=== PATIENT | female | born 1950 | race Caucasian/White ===

== ENCOUNTER 2017-03-04 18:41 | Observation (INO) ==
[2017-03-04] MEDS ORDERED: NS 1,000 ML IV ONE (19:26)
[2017-03-04 19:45] LABS: ALLEN TEST YES; BE 0.3 mmoll (-3.0-3.0); BLOOD TYPE ARTERIAL; DRAW SITE R BRACHIAL; METHB 0.8 % (0.0-1.5); MODALITY ROOM AIR; PCO2(98.6) 38 mmHg (35-45); PO2(98.6) 68 mmHg (60-100); SAMPLE BLOOD; SAO2 96.9 % (95.0-100.0); THB 12.9 g/dL (11.5-17.4); pH(98.6) 7.42 (7.35-7.45)
[2017-03-04 19:51] LABS: MANUAL DIFF NEEDED? NO
[2017-03-04 19:56] LABS: BASO% 0.4 % (0.0-0.8); HEMATOCRIT 39.6 % (37.0-47.0); HEMOGLOBIN 13.2 g/dL (12.0-16.0); LYMPH# 0.69 X1000 (1.2-3.4); LYMPH% 14.2 % (20.5-51.1); MCH 30.6 PG (27-31); MCHC 33.3 g/dL (33-37); MCV 91.9 FL (81-99); MONO% 6.2 % (1.7-9.3); MPV 10.2 FL (7.4-10.4); NEUT% 79.2 % (42.2-75.2); PLT 217 X1000 (130-400); RBC 4.31 XMIL (4.2-5.4)
[2017-03-04 20:06] LABS: INR 1.11; PROTIME 11.7 Seconds (9.2-11.7); PTT 29.9 Seconds (22.0-36.0)
[2017-03-04 20:37] LABS: AGAP 13; ALBUMIN 3.6 g/dL (3.5-5.0); ALKALINE PHOSPHATASE 49 U/L (32-104); BUN 24 mg/dL (8-22); CALCIUM 9.2 mg/dL (8.8-10.2); CHLORIDE 107 mmol/L (98-107); CK PROFILE 98 U/L (24-173); COSMO 291; GOT 29 U/L (10-30); GPT 9 U/L (10-36); POTASSIUM 4.2 mmol/L (3.5-5.1); SODIUM 144 mmol/L (136-145); TCO2 24 mmol/L (25-35); TOTAL BILIRUBIN 0.18 mg/dL (0.20-1.00); TOTAL PROTEIN 7.2 g/dL (6.3-8.3)
--- NOTE | 2017-03-04 20:50 | Diag Imaging Result Doc PS360 ---
EXAM: HEAD W/O CONTRAST TECHNIQUE: INDICATION: ams COMPARISON: None. FINDINGS: There is focal right frontal lobe encephalomalacia. There is no definite acute infarct given the limited sensitivity of CT versus MRI. There is no discrete intracranial mass, mass effect, or intracranial hemorrhage. Surrounding soft tissues and bony structures are essentially unremarkable. IMPRESSION: Focal right frontal encephalomalacia. No definite acute intracranial pathology. Electronically signed by Timi Barnett 03/04/2017 8:47 PM
[2017-03-04] MEDS ORDERED: BLISTEX MEDICATED BERRY LIP BALM TOP PRN (20:52)
--- NOTE | 2017-03-04 20:52 | Diag Imaging Result Doc PS360 ---
EXAM: CHEST-PORTABLE INDICATION: AMS TECHNIQUE: One view COMPARISON: 10/21/2016 FINDINGS: There is suggestion of minimal right basilar fibrotic change versus atelectasis. The lungs are grossly clear, otherwise. There is no discrete pleural fluid collection or pneumothorax. The cardiomediastinal silhouette and central vasculature are grossly unremarkable. IMPRESSION: Minimal right basilar fibrosis versus atelectasis. No definite acute pathology, otherwise. Electronically signed by Timi Barnett 03/04/2017 8:49 PM
[2017-03-04 21:46] LABS: URINE CULTURE NEEDED? NO; URINE MICRO REVIEW NEEDED? NO; URINE SOURCE CLEAN CATCH
[2017-03-04 21:52] LABS: BILIRUBIN URINE NEGATIVE (NEGATIVE); BLOOD URINE NEGATIVE (NEGATIVE); COLOR YELLOW; GLUCOSE URINE NEGATIVE (NEGATIVE); LEUKOCYTES URINE NEGATIVE (NEGATIVE); NITRITE URINE NEGATIVE (NEGATIVE); PH URINE 5.5; PROTEIN URINE TRACE mg/dL (NEGATIVE); SP GRAVITY URINE 1.025; TURBIDITY URINE CLEAR (CLEAR); UROBILINOGEN URINE NORMAL (NORMAL)
[2017-03-04 21:53] LABS: UR EPITHELIAL CELLS <10 /HPF (<10); URINE BACTERIA NEGATIVE /HPF; URINE RBC <10 /HPF (<10); URINE WBC <10 /HPF (<10)
[2017-03-04 22:04] LABS: UR AMPHETAMINES QUAL NONE DETECTED (NONE DETECT); UR BARBITUATES QUAL NONE DETECTED (NONE DETECT); UR BENZODIAZEPIN QUAL NONE DETECTED (NONE DETECT); UR CANNABINOIDS QUAL NONE DETECTED (NONE DETECT); UR COCAINE QUAL NONE DETECTED (NONE DETECT); UR METHADONE QUAL NONE DETECTED (NONE DETECT); UR OPIATES QUAL NONE DETECTED (NONE DETECT); UR OXYCODONE QUAL NONE DETECTED (NONE DETECT); UR PCP QUAL NONE DETECTED (NONE DETECT)
--- NOTE | 2017-03-04 22:09 | PROVIDER DOCUMENTATION ---
This chart was entered by Pankaj Hernandez Scribe, acting as scribe for Marcio Leary MD. HPI-Psychological Disorder - General Chief Complaint: Heat Related Stated Complaint: AMS Time Seen by Provider: 03/04/17 19:18 Source: patient, family (sister) Unable to obtain history due to:: altered Allergies/Adverse Reactions: Patient Allergies Allergy/AdvReac Type Severity Reaction Status Date / Time Penicillins Allergy Severe ANAPHYLAXIS Verified 03/04/17 19:30 promethazine HCl * Allergy Severe ANAPHYLAXIS Verified 03/04/17 19:30 [From Phenergan] hydrocodone bitartrate * AdvReac Mild ITCHING Verified 03/04/17 19:30 [From Lorcet (hydrocodone)] propoxyphene napsylate * AdvReac Mild ITCHING Verified 03/04/17 19:30 [From Darvocet-N 100] Home Medications: Home Medication List Medication Instructions Recorded Confirmed Last Taken Type Fluticasone 50 Mcg Nasal [place] 2 spray BILLIE DAILY #1 bottle 01/18/14 Unknown Rx [Flonase] Levothyroxine [Synthroid] 75 microgm PO DAILY 01/18/14 01/18/14 01/18/14 06:00 History - History of Present Illness-Psych Nature of Presenting Problem: Pt is a 66 yowf who presents to ER via EMS after sister could not get a hold of pt earlier. Sister reports that the last contact she had with pt was last night at 1900 and states that pt seemed okay, but possibly slightly altered. 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 When sister was not able to contact pt today, she to her apartment and had to be let in. Pt was found inside her apartment, altered. Sister states that pt has had slurred speech today, but states that she was not slurred on exam. Sister reports pt had a similar episode 8 moths ago, but never found out the cause of pt's condition. Onset/Duration: reports: unsure, this morning Timing: reports: still present Severity: reports: moderate Situational problems related to:: reports: N/A Psychiatric Complaints: reports: altered mental status Previous psych related hospitalizations?: No Patient arrived by:: EMS called by spouse/family Similar Symptoms Previously?: Yes (8 months ago) Recently seen or treated by another doctor?: No Review of Systems - Adult - REVIEW OF SYSTEMS - ADULT ROS:: ROS per family Constitutional: denies: chills, fever, fatique, night sweats, weight gain, weight loss Eyes: reports: no symptoms reported Ears, Nose, Mouth & Throat: reports: no symptoms reported Cardiovascular: reports: no symptoms reported Respiratory: reports: no symptoms reported Gastrointestinal: reports: no symptoms reported Genitourinary: reports: no symptoms reported Musculoskeletal: reports: no symptoms reported Integumentary: reports: no symptoms reported Neurological: reports: slurred speech. denies: ataxia, dizziness/vertigo, headache/migraines, loss of balance, numbness, paresthesia, seizure, syncope, tremors Psychiatric: reports: other (AMS). denies: anxiety, anti-depressant use, alcohol/drug dependence, depression, emotional problems, insomnia, panic attacks , suicidal thoughts Endocrine: reports: no symptoms reported Hematologic/Lymphatic: reports: no symptoms reported Allergic/Immunologic: reports: no symptoms reported All Other Systems: Reviewed and Negative Past History - Adult - PAST MEDICAL HISTORY-ADULT Review of Records: reports: Nursing Assessment Review, Medications Reviewed Respiratory: reports: COPD Endocrine/Immune: reports: thyroid disorder - PRIOR SURGERIES/PROCEDURES Surgical/Procedure History: reports: hysterectomy - IMMUNIZATION STATUS Childhood Immunizations: See Nurse Assessment Flu Vaccine: See Nurse Assessment - FAMILY HISTORY Family History: reviewed, not pertinent - SOCIAL HISTORY Smoking: cigarettes, less than 1 pack/day Physical Exam-Psych Focus - Physical Exam-Psych Initial Vital Signs Reviewed: Yes Appearance: alert, impaired insight, lethargic, slow to respond, other (thin) Neurological: alert, calm, depressed affect, disoriented x 3 Behavior/Eye Contact/Speech: decreased rate of speech, uncooperative (mildly). negative: good eye contact Thoughts/Hallucinations: negative: normal thought pattern, grandiose, phobic Neck: non-tender, full range of motion, supple, normal inspection. negative: C- spine tenderness, limited range of motion Respiratory: chest non-tender, lungs clear, normal breath sounds, no pleuratic chest pain, no respiratory distress, no accessory muscle use. negative: respiratory distress, decreased breath sounds, accessory muscle use, wheezing Cardiovascular: normal peripheral pulses, regular rate, rhythm. negative: bradycardia, tachycardia, irregularly irregular Abdominal Exam: normal bowel sounds, non tender, soft, no organomegaly, no pulsatile mass. negative: guarding, rebound, tenderness Back Exam: no CVA tenderness, no vertebral tenderness. negative: CVA tenderness , vertebral tenderness Extremity: normal range of motion, non-tender, normal gait, normal inspection, no pedal edema, no calf tenderness, normal capillary refill, pelvis stable, erythema (bilateral knee, L>R). negative: deformity, pedal edema, swelling, tenderness Integumentary: abrasion(s) (abrasions to bilateral knees, L>R), erythema. negative: diaphoresis, laceration(s), swelling, tenderness Progress - PLAN OF CARE/RESULTS Progress/Plan/Lab Results: Vital Signs - 8 hr 03/04/17 19:14 03/04/17 20:57 Temperature 98.3 F Pulse Rate 67 66 Respiratory Rate 18 23 Blood Pressure 111/90 149/82 O2 Sat by Pulse Oximetry 100 97 Laboratory Results - last 24 hr 03/04/17 03/04/17 03/04/17 19:26 19:30 19:30 WBC RBC Hgb Hct MCV MCH MCHC RDW Std Deviation Plt Count MPV Immature Gran % (Auto) Neut % (Auto) Lymph % (Auto) [place] % (Auto) Eos % (Auto) Baso % (Auto) Immature Gran # (Auto) Neut # (Auto) Lymph # (Auto) [place] # (Auto) Eos # (Auto) Baso # (Auto) PT INR PTT ([place] FS) Specimen Type ARTERIAL Sample Site R BRACHIAL pH 7.42 pCO2 38 pO2 68 HCO3 25.1 Base Excess 0.3 Oxyhemoglobin 93.7 L ABG O2 Sat (Calculated) 17.0 ABG O2 Saturation 96.9 ABG Carboxyhemoglobin 2.50 ABG Methemoglobin 0.8 Hardy Test YES A-a O2 Difference 34.0 Total Hemoglobin 12.9 Lactate 0.50 Blood Gas Modality ROOM AIR FiO2 % 21.0 Sodium Potassium Chloride Carbon Dioxide Anion Gap BUN Creatinine Estimated GFR/1.73 m2 BUN/Creatinine Ratio Glucose Calculated Osmolality Calcium Total Bilirubin AST ALT Alkaline Phosphatase Creatine Kinase Troponin T Total Protein Albumin Globulin Albumin/Globulin Ratio Plasma Lactate Vitamin B12 TSH 0.03 L Free T4 Urine Source Urine Color Urine Turbidity Urine pH Ur Specific [place] Urine Protein Ur Glucose (Stick) Ur Ketones (Stick) Urine Blood Urine Nitrite Urine Bilirubin Urobilinogen Dipstick Urine Leukocytes Urine WBC (Auto) Urine RBC (Auto) U Epithel Cells (Auto) Urine Bacteria (Auto) Urine Opiates Screen Ur Oxycodone Screen Ur Methadone, Qual Ur Barbiturates Screen Ur Phencyclidine Scrn Ur Amphetamines Screen U Benzodiazepines Scrn Urine Cocaine Screen U Cannabinoids Screen Plasma/Serum Ethyl Alc 03/04/17 03/04/17 03/04/17 19:30 19:30 19:30 WBC 4.86 RBC 4.31 Hgb 13.2 Hct 39.6 MCV 91.9 MCH 30.6 MCHC 33.3 RDW Std Deviation 16.5 H Plt Count 217 MPV 10.2 Immature Gran % (Auto) 0.0 Neut % (Auto) 79.2 H Lymph % (Auto) 14.2 L [place] % (Auto) 6.2 Eos % (Auto) 0.0 Baso % (Auto) 0.4 Immature Gran # (Auto) 0.00 Neut # (Auto) 3.85 Lymph # (Auto) 0.69 L [place] # (Auto) 0.30 Eos # (Auto) 0.00 Baso # (Auto) 0.02 PT INR PTT (Actin FS) Specimen Type Sample Site pH pCO2 pO2 HCO3 Base Excess Oxyhemoglobin ABG O2 Sat (Calculated) ABG O2 Saturation ABG Carboxyhemoglobin ABG Methemoglobin Hardy Test A-a O2 Difference Total Hemoglobin Lactate Blood Gas Modality FiO2 % Sodium 144 Potassium 4.2 Chloride 107 Carbon Dioxide 24 L Anion Gap 13 BUN 24 H Creatinine 0.6 Estimated GFR/1.73 m2 > 60 BUN/Creatinine Ratio 40 Glucose 103 Calculated Osmolality 291 Calcium 9.2 Total Bilirubin 0.18 L AST 29 ALT 9 L Alkaline Phosphatase 49 Creatine Kinase 98 Troponin T Total Protein 7.2 Albumin 3.6 Globulin 3.6 Albumin/Globulin Ratio 1.0 Plasma Lactate 0.7 Vitamin B12 TSH Free T4 Urine Source Urine Color Urine Turbidity Urine pH Ur Specific [place] Urine Protein Ur Glucose (Stick) Ur Ketones (Stick) Urine Blood Urine Nitrite Urine Bilirubin Urobilinogen Dipstick Urine Leukocytes Urine WBC (Auto) Urine RBC (Auto) U Epithel Cells (Auto) Urine Bacteria (Auto) Urine Opiates Screen Ur Oxycodone Screen Ur Methadone, Qual Ur Barbiturates Screen Ur Phencyclidine Scrn Ur Amphetamines Screen U Benzodiazepines Scrn Urine Cocaine Screen U Cannabinoids Screen Plasma/Serum Ethyl Alc 03/04/17 03/04/17 03/04/17 19:30 19:30 19:30 WBC RBC Hgb Hct MCV MCH MCHC RDW Std Deviation Plt Count MPV Immature Gran % (Auto) Neut % (Auto) Lymph % (Auto) [place] % (Auto) Eos % (Auto) Baso % (Auto) Immature Gran # (Auto) Neut # (Auto) Lymph # (Auto) [place] # (Auto) Eos # (Auto) Baso # (Auto) PT 11.7 INR 1.11 PTT (Actin FS) 29.9 Specimen Type Sample Site pH pCO2 pO2 HCO3 Base Excess Oxyhemoglobin ABG O2 Sat (Calculated) ABG O2 Saturation ABG Carboxyhemoglobin ABG Methemoglobin Hardy Test A-a O2 Difference Total Hemoglobin Lactate Blood Gas Modality FiO2 % Sodium Potassium Chloride Carbon Dioxide Anion Gap BUN Creatinine Estimated GFR/1.73 m2 BUN/Creatinine Ratio Glucose Calculated Osmolality Calcium Total Bilirubin AST ALT Alkaline Phosphatase Creatine Kinase Troponin T < 0.010 Total Protein Albumin Globulin Albumin/Globulin Ratio Plasma Lactate Vitamin B12 778 TSH Free T4 1.00 Urine Source Urine Color Urine Turbidity Urine pH Ur Specific [place] Urine Protein Ur Glucose (Stick) Ur Ketones (Stick) Urine Blood Urine Nitrite Urine Bilirubin Urobilinogen Dipstick Urine Leukocytes Urine WBC (Auto) Urine RBC (Auto) U Epithel Cells (Auto) Urine Bacteria (Auto) Urine Opiates Screen Ur Oxycodone Screen Ur Methadone, Qual Ur Barbiturates Screen Ur Phencyclidine Scrn Ur Amphetamines Screen U Benzodiazepines Scrn Urine Cocaine Screen U Cannabinoids Screen Plasma/Serum Ethyl Alc 03/04/17 03/04/17 21:30 21:30 WBC RBC Hgb Hct MCV MCH MCHC RDW Std Deviation Plt Count MPV Immature Gran % (Auto) Neut % (Auto) Lymph % (Auto) [place] % (Auto) Eos % (Auto) Baso % (Auto) Immature Gran # (Auto) Neut # (Auto) Lymph # (Auto) [place] # (Auto) Eos # (Auto) Baso # (Auto) PT INR PTT ([place] FS) Specimen Type Sample Site pH pCO2 pO2 HCO3 Base Excess Oxyhemoglobin ABG O2 Sat (Calculated) ABG O2 Saturation ABG Carboxyhemoglobin ABG Methemoglobin Hardy Test A-a O2 Difference Total Hemoglobin Lactate Blood Gas Modality FiO2 % Sodium Potassium Chloride Carbon Dioxide Anion Gap BUN Creatinine Estimated GFR/1.73 m2 BUN/Creatinine Ratio Glucose Calculated Osmolality Calcium Total Bilirubin AST ALT Alkaline Phosphatase Creatine Kinase Troponin T Total Protein Albumin Globulin Albumin/Globulin Ratio Plasma Lactate Vitamin B12 TSH Free T4 Urine Source CLEAN CATCH Urine Color YELLOW Urine Turbidity CLEAR Urine pH 5.5 Ur Specific [place] 1.025 Urine Protein TRACE A Ur Glucose (Stick) NEGATIVE Ur Ketones (Stick) 60 A Urine Blood NEGATIVE Urine Nitrite NEGATIVE Urine Bilirubin NEGATIVE Urobilinogen Dipstick NORMAL Urine Leukocytes NEGATIVE Urine WBC (Auto) <10 Urine RBC (Auto) <10 U Epithel Cells (Auto) <10 Urine Bacteria (Auto) NEGATIVE Urine Opiates Screen NONE DETECTED Ur Oxycodone Screen NONE DETECTED Ur Methadone, Qual NONE DETECTED Ur Barbiturates Screen NONE DETECTED Ur Phencyclidine Scrn NONE DETECTED Ur Amphetamines Screen NONE DETECTED U Benzodiazepines Scrn NONE DETECTED Urine Cocaine Screen NONE DETECTED U Cannabinoids Screen NONE DETECTED Plasma/Serum Ethyl Alc Orders Category Date Time Status Cardiac Monitoring DIRECTED Care 03/04/17 19:26 Active Finger Stick Blood Sugar (ED) DIRECTED Care 03/04/17 19:26 Active Saline Loc NOW Care 03/04/17 19:26 Active CHEST-PORTABLE [RAD] Stat Exams 03/04/17 19:26 Completed HEAD W/O CONTRAST [CT] Stat Exams 03/04/17 19:28 Completed ABG [RESP] Routine Lab 03/04/17 19:26 Completed ALCOHOL BLOOD Stat Lab 03/04/17 19:30 Completed CBC WITH ELECTRONIC DIFF [HEME] Stat Lab 03/04/17 19:30 Completed CK PROFILE [SP CHEM] Stat Lab 03/04/17 19:30 Completed COMPREHENSIVE METABOLIC PANEL [CHEM] Stat Lab 03/04/17 19:30 Completed FOLATE Stat Lab 03/04/17 19:30 Received FREE T4 Stat Lab 03/04/17 19:30 Completed LACTATE, PLASMA [CHEM] Stat Lab 03/04/17 19:30 Completed PROTIME WITH INR [COAG] Stat Lab 03/04/17 19:30 Completed PTT [COAG] Stat Lab 03/04/17 19:30 Completed TROPONIN T Stat Lab 03/04/17 19:30 Completed TSH Stat Lab 03/04/17 19:30 Completed URINALYSIS W/POSS RFLX CULT-1 [URINALYSIS] Stat Lab 03/04/17 21:30 Completed URINE DRUG SCREEN Stat Lab 03/04/17 21:30 Completed VITAMIN B12 Stat Lab 03/04/17 19:30 Completed 0.9% Sodium Chloride Inj [Ns] 1,000 ml Med 03/04/17 19:26 Discontinued IV 999 mls/hr Dimethicone/Oxybenzone [place] [Blistex Medicated Diehl Med 03/04/17 20:52 Active Lip [place]] 1 gm TOP PRN PRN Pulse Oximetry Stat Oth 03/04/17 19:26 Active EKG [EKG] Stat Ther 03/04/17 19:26 Ordered Result Diagrams: 03/04/17 19:30 03/04/17 19:30 - REASSESSMENT Reassessment #1 Time Reassessed: 20:44 Status: other (Discussed finding on head CT (old right frontal lobe infarct) with family. Family was unaware of previous stroke, and state pt had similar episode 8 months ago that they were never made aware of until today. Discussed decision to admit pt and family verbally acknowledged and agreed.) - EKG 1 Time of EKG reading by physician:: 20:15 EKG Read and Signed by:: Marcio Leary EKG Interpretation (*Must complete 3 of following elements*): Abnormal ( Possible left atrial enlargement) Rate: 65 Rhythm: NSR with sinus arrhythmia - XRAY 1 XRAY: Bilateral XRAY Study: Chest Impression: See EMR Report XRAY Interpretation: COPD, borderline cardiomegaly, otherwise normal - Dr. Etelvina villanueva - CT/MRI 1 CT Study: Head Impression: See EMR Report (Old right frontal infarct - Dr. Leary ; Focal right frontal encephalomalacia. No definite acute intracranial pathology - Dr. Barnett (Radiologist)) CT Results: See report Departure - Departure Date of Disposition Decision: 03/04/17 Time of Disposition Decision: 22:05 DIAGNOSIS: Altered mental status Qualifiers: Altered mental status type: unspecified Qualified Code(s): R41.82 - Altered mental status, unspecified Disposition: ADMITTED INPATIENT 09 Certified Medical Emergency: Emergent Condition: Fair Referrals and Follow-Ups: None,PCP [Primary Care Provider] - - Critical Care Note This patient required my direct & personal management of CC.: No This chart was documented by the indicated scribe, (Pankaj Hernandez, Scrjevon) and accurately reflects the services I performed and decisions made by me, Marcio Vincent MD, as attested by the provider's signature.
[2017-03-05] MEDS ORDERED: ZOFRAN IV PRN
[2017-03-05] MEDS ORDERED: TYLENOL PO PRN
[2017-03-05] MEDS ORDERED: NS 1,000 ML IV ONE
[2017-03-05] MEDS ORDERED: ASPIRIN PR ONE (03:00)
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
[2017-03-05 07:04] LABS: MANUAL DIFF NEEDED? NO
[2017-03-05 07:07] LABS: BASO% 0.4 % (0.0-0.8); EOS# 0.02 X1000 (0.0-0.7); EOS% 0.4 % (0.0-10.0); HEMATOCRIT 36.6 % (37.0-47.0); HEMOGLOBIN 12.2 g/dL (12.0-16.0); LYMPH# 0.75 X1000 (1.2-3.4); LYMPH% 16.2 % (20.5-51.1); MCH 30.7 PG (27-31); MCHC 33.3 g/dL (33-37); MONO# 0.43 X1000 (0.11-0.59); MONO% 9.3 % (1.7-9.3); MPV 10.1 FL (7.4-10.4); NEUT% 73.7 % (42.2-75.2); PLT 197 X1000 (130-400); RBC 3.98 XMIL (4.2-5.4)
[2017-03-05 07:32] LABS: AGAP 13; BUN 26 mg/dL (8-22); CALCIUM 8.5 mg/dL (8.8-10.2); CHLORIDE 111 mmol/L (98-107); COSMO 295; POTASSIUM 4.1 mmol/L (3.5-5.1); SODIUM 146 mmol/L (136-145); TCO2 22 mmol/L (25-35)
[2017-03-05] MEDS ORDERED: HALDOL IM ONE (09:43)
--- NOTE | 2017-03-05 10:46 | Diag Imaging Result Doc PS360 ---
EXAM: ANGIOGRAM/HEAD AND NECK INDICATION: possible cva TECHNIQUE: In addition to standard CTA thin section imaging through the head and neck, 3-D MIP reformations were obtained. COMPARISON: Conventional CT head without contrast dated 03/04/2017 FINDINGS: HEAD: There is an incidental origin of the left ORGAN FIXER. Otherwise, there is no evidence of flow-limiting stenosis, vascular malformation, or aneurysm involving the arteries comprising the [place] including the anterior, middle, and posterior circulations. There is trace atherosclerotic calcification involving the carotid siphons but with no significant stenosis. The basilar artery is patent. NECK: There are atherosclerotic calcifications at the carotid bifurcations and bulbs bilaterally. There is moderate luminal narrowing of about 40-50% involving the right ICA just distal to the bifurcation. There is milder luminal narrowing involving the proximal left ICA just distal to the bifurcation of about 20%. There is only trace atherosclerotic calcification involving the left CCA and the distal left ICA with no significant flow-limiting stenosis. There is no flow-limiting stenosis, vascular malformation, or aneurysm involving the vertebral arteries. IMPRESSION: 1.No evidence of flow-limiting stenosis intracranially involving the arteries comprising the [place]. 2.Atherosclerotic calcification causing moderate stenosis on the right and mild stenosis on the left at the ICAs just distal to the bifurcations. Electronically signed by Timi Barnett 03/05/2017 10:43 AM
[2017-03-05] MEDS ORDERED: HALDOL IM PRN (11:37)
--- NOTE | 2017-03-05 14:07 | PROGRESS NOTE ---
DATE: 03/05/2017 SUBJECTIVE: This patient is still confused, as per the family member at the bedside, her daughter, apparently this patient is a little bit better but she is still confused. She is following commands. She is answering some of my questions. She is oriented x1, just to place. We are asking for an MRI and angiogram of the head and neck, hopefully we will get that tomorrow and also pending neurology evaluation. OBJECTIVE: Vital Signs: Temperature 99.4 degrees, pulse 58, respiratory rate 20, blood pressure 124/67, oxygen saturation 98 on room air. HEENT: Head normocephalic. No trauma. PERRLA. Neck: Supple. No JVD. No masses. Central trachea. Chest: Clear to auscultation. No wheezing. No rales. Abdomen: Soft, nontender, nondistended. No hepatosplenomegaly. Extremities: No edema. No clubbing. No cyanosis. Neurological: The patient is alert, she is oriented x1. She is confused. She was able to recognize her daughter. Every time due we asked a question she started laughing but she does not answer the question. Also she is a little bit agitated. LABORATORY: WBC 4.6, hemoglobin 12.2, hematocrit 36.6, platelets 197,000. Sodium 146, potassium 4.1, chloride 111, bicarbonate 22, BUN 26, creatinine 0.5, glucose 86, calcium 8.5. ASSESSMENT AND PLAN: 1. Acute encephalopathy. As per the daughter 2-3 days ago this patient was completely fine and then somebody called her and she was not picking up the phone so they visited her at home and they found this patient on the floor and confused. They brought this patient over, no signs of drugs drug abuse or alcohol. I do not have any source of infection. Pending brain studies and neurology evaluation. 2. Hypothyroidism. Continue with the same management. 3. Deep vein thrombosis prophylaxis provided with SCDs. 4. Nicotine dependence aware. We will advise the patient against tobacco abuse once this patient is better. 5. Mild hypernatremia. I told the daughter that this patient needs to drink more water. We will check a new BMP tomorrow. cc: José Luis Lee MD
--- NOTE | 2017-03-06 06:35 | EKG Report ---
Test Performed on : 03/04/2017 8:08:47 PM Test Reason : AMS Blood Pressure : / mmHG Vent. Rate : 065 BPM Atrial Rate : 065 BPM P-R Int : 148 ms QRS Dur : 082 ms QT Int : 398 ms P-R-T Axes : 069 015 059 degrees QTc Int : 413 ms Normal sinus rhythm. with sinus arrhythmia. Possible Left atrial enlargement Borderline ECG No previous ECGs available Unconfirmed Result
[2017-03-06 07:30] LABS: BASO% 0.5 % (0.0-0.8); EOS# 0.07 X1000 (0.0-0.7); EOS% 1.6 % (0.0-10.0); HEMATOCRIT 34.7 % (37.0-47.0); HEMOGLOBIN 11.4 g/dL (12.0-16.0); LYMPH# 0.98 X1000 (1.2-3.4); LYMPH% 22.6 % (20.5-51.1); MANUAL DIFF NEEDED? NO; MCH 30.6 PG (27-31); MCHC 32.9 g/dL (33-37); MONO# 0.43 X1000 (0.11-0.59); MONO% 9.9 % (1.7-9.3); NEUT% 65.4 % (42.2-75.2); PLT 186 X1000 (130-400); RBC 3.73 XMIL (4.2-5.4)
[2017-03-06 07:50] LABS: AGAP 13; BUN 28 mg/dL (8-22); CALCIUM 8.8 mg/dL (8.8-10.2); CHLORIDE 104 mmol/L (98-107); COSMO 285; SODIUM 141 mmol/L (136-145); TCO2 24 mmol/L (25-35)
[2017-03-06] MEDS ORDERED: ASPIRIN PR SCH (09:00)
--- NOTE | 2017-03-06 09:18 | Diag Imaging Result Doc PS360 ---
MRI BRAIN W W/O CONTRAST - 03/06/2017 INDICATION: ams COMPARISON: 03/04/2017 FINDINGS: Stable area of focal encephalomalacia at the superior anterior right frontal lobe consistent with an old infarction. No restricted diffusion. No intracranial mass or hemorrhage. There is some stable minimal periventricular white matter hyperintensity compatible with chronic microvascular disease. Midline structures are unremarkable. There is no abnormal contrast enhancement. IMPRESSION: No acute disease or change from prior. Stable encephalomalacia at the right frontal lobe and mild periventricular white matter chronic microvascular disease. Electronically signed by Homer Helton 03/06/2017 9:16 AM
[2017-03-06] MEDS: ASPIRIN PO SCH (12:21)
--- NOTE | 2017-03-06 12:24 | EKG Report ---
Test Performed on : 03/06/2017 11:36:59 AM Test Reason : Bradycardia Blood Pressure : / mmHG Vent. Rate : 041 BPM Atrial Rate : 041 BPM P-R Int : 150 ms QRS Dur : 084 ms QT Int : 456 ms P-R-T Axes : 055 012 044 degrees QTc Int : 376 ms Marked sinus bradycardia. with sinus arrhythmia. Abnormal ECG When compared with ECG of 04-MAR-2017 20:08, (Unconfirmed) Vent. rate has decreased BY 24 BPM Nonspecific T wave abnormality no longer evident in Anterior leads Confirmed by Mandi Krishnamurthy MD ([id number]) on 03/07/2017 6:03:40 AM
--- NOTE | 2017-03-06 15:28 | PROGRESS NOTE ---
DATE: 03/06/2017 SUBJECTIVE: This patient looks much better today. When I evaluated this patient two days ago, she was completely confused. Yesterday she was better, but still confused. Today she is answering all my questions, but the answers are slow, she is alert and she is oriented x3. She is tolerating physical therapy. This patient has been bradycardic without symptoms and she has had 1 episode of probably supraventricular tachycardia. I will consult Cardiology to evaluate this patient, but like I said before, she is asymptomatic. She is not getting any treatment that can cause bradycardia, and when she was admitted, the heart rate was mostly in the 60s. I did an EKG that did not show any blockage. OBJECTIVE: Vital Signs: Temperature 97 degrees, pulse 45, respiratory rate 16, blood pressure 133/63, O2 saturation 99% on room air. HEENT: Head normocephalic. No trauma. PERRLA. Neck: Supple. No JVD. No masses. Central trachea. Chest: Clear to auscultation. No wheezing. No rales. Abdomen: Soft, nontender, nondistended. No hepatosplenomegaly. Cardiovascular: Regular rhythm and rate. Bradycardic. Extremities: No edema. No clubbing. No cyanosis. Neurological: The patient is alert and oriented x3. Her answers are slow, but compared with the previous day she is much better. She is able to recognize also family members. She is not agitated. LABORATORY: WBC 4.3, hemoglobin 11.4, hematocrit 34.7, platelets 186,000. Sodium 141, potassium 4, chloride 104, bicarbonate 24, BUN 28, creatinine 0.4, glucose 66, calcium 8.8. ASSESSMENT AND PLAN: 1. Acute encephalopathy. As per the daughter 3 to 4 days ago, this patient was completely fine and then somebody called her and she was not picking up the phone, so they had visited her at home and they found this patient on the floor and confused. They brought this patient over. No signs of drug abuse or alcohol. I do not see any source of infection. Today she looks much better, and brain MRI did not show any new abnormality, pending Neurology evaluation. 2. Hypothyroidism. Continue with the same management. 3. Deep vein thrombosis prophylaxis. Continue with SCDs. 4. Nicotine dependence. Aware. This patient has been advised against tobacco abuse. I will continue with daily cessation education. 5. Hypernatremia, resolved. 6. Sinus bradycardia, asymptomatic. This patient has not been here before, I do not have any records of previous EKG. I will consult Cardiology Department. cc: José Luis Lee MD
--- NOTE | 2017-03-06 17:51 | ECHO REPORT ---
ORDER DATE: 03/06/2017 FINDINGS: 1. Right atrium is mildly enlarged at 4.5 cm. 2. Mild tricuspid regurgitation. RV systolic pressure of 42 mmHg. 3. Normal RV size and systolic function. 4. Mild pulmonic insufficiency. 5. Normal left atrial size at 3.1 cm. 6. No mitral valve prolapse. Mild to moderate mitral regurgitation. 7. Normal LV size with an end-diastolic dimension of 5 cm. Normal wall thicknesses with a posterior and interventricular septal wall thickness of 0.7 cm each. Normal LV systolic function. Estimated EF is 65% with normal wall motion. 8. Aortic valve is calcified but does appear to open well on 2-dimensional imaging. The valve is trileaflet. There is no evidence of aortic insufficiency. 9. Aorta appears normal in visualized segments. 10. No pericardial effusion seen. 11. Heart rate seems to run in the mid to low 40s during the course of the study and appeared to be in sinus. cc: MD Leigh Sosa PA
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
--- NOTE | 2017-03-07 06:48 | EKG Report ---
Test Performed on : 03/07/2017 06:21:49 AM Test Reason : bradycardia Blood Pressure : / mmHG Vent. Rate : 037 BPM Atrial Rate : 037 BPM P-R Int : 128 ms QRS Dur : 086 ms QT Int : 498 ms P-R-T Axes : 065 022 057 degrees QTc Int : 390 ms Marked sinus bradycardia. Abnormal ECG When compared with ECG of 06-MAR-2017 11:36, No significant change was found Confirmed by Dionisio Olivas DO ([id number]) on 03/07/2017 6:30:09 PM
[2017-03-07 06:51] LABS: MANUAL DIFF NEEDED? NO
[2017-03-07 07:09] LABS: BASO% 0.2 % (0.0-0.8); EOS# 0.17 X1000 (0.0-0.7); EOS% 3.8 % (0.0-10.0); HEMATOCRIT 38.1 % (37.0-47.0); HEMOGLOBIN 12.9 g/dL (12.0-16.0); LYMPH# 0.92 X1000 (1.2-3.4); LYMPH% 20.5 % (20.5-51.1); MCH 30.6 PG (27-31); MCHC 33.9 g/dL (33-37); MCV 90.3 FL (81-99); MONO# 0.55 X1000 (0.11-0.59); MONO% 12.3 % (1.7-9.3); MPV 10.4 FL (7.4-10.4); NEUT% 63.2 % (42.2-75.2); PLT 205 X1000 (130-400); RBC 4.22 XMIL (4.2-5.4)
[2017-03-07 07:22] LABS: AGAP 12; BUN 16 mg/dL (8-22); CALCIUM 9.1 mg/dL (8.8-10.2); CHLORIDE 103 mmol/L (98-107); COSMO 281; POTASSIUM 4.4 mmol/L (3.5-5.1); SODIUM 141 mmol/L (136-145); TCO2 26 mmol/L (25-35)
[2017-03-07] MEDS: ASPIRIN PO SCH (09:35)
[2017-03-07] MEDS ORDERED: NEURONTIN PO PRN (10:06)
--- NOTE | 2017-03-07 14:28 | EEG REPORT ---
DATE: 03/06/2017 REFERRING PHYSICIAN: Dr. Logan. EEG #: [id number] ETL INFORMATICA DEVELOPER: Timmy Lewis. BACKGROUND INFORMATION TECHNIQUE: A digitally recorded EEG is obtained with 1 additional channel for EKG. HISTORY OF PRESENT ILLNESS: 66-year-old female admitted with altered mental status. There is question of seizure. Therefore an EEG is ordered to detect evidence of propensity for seizure. MEDICATIONS: Aspirin, Haldol p.r.n., Tylenol and Zofran p.r.n. EEG FINDINGS: This is a technically limited study due to diffuse myogenic artifact requiring significant filtering. There is a poorly sustained posterior dominant 8.5 hertz alpha rhythm in the occipital regions. At maximal alertness the background consists of mixed frequencies alpha, beta, theta and occasional delta. No definite epileptiform discharges and no seizures noted. No definite persistent focal slowing. Hyperventilation was not performed. Photic stimulation did not induce a driving response. The patient in and out of drowsiness throughout the record. No stage 2 sleep is observed. The EKG shows some irregularity of the R to R interval. IMPRESSION AND CLINICAL CORRELATION: Abnormal, technically limited routine EEG due to. 1. Mild to moderate generalized slowing indicative of a mild to moderate encephalopathy. Generalized slowing is a nonspecific finding that can be seen in processes that diffusely affect the cerebrum including toxic metabolic, pharmacologic, post hypoxic and infectious etiologies. 2. Some irregularity noted on the EEG. No epileptiform discharges and no seizures are seen on the current study. This does not rule out underlying seizure disorder. Clinical correlation is advised. cc: Reta Logan MD
--- NOTE | 2017-03-07 14:34 | PROGRESS NOTE ---
DATE: 03/07/2017 SUBJECTIVE: The patient is feeling much better. The sister is at bedside says that she is much, much better. There is some plan for discharge possibly later today or tomorrow. An EEG was done in the afternoon yesterday and has been reviewed. OBJECTIVE: Vital signs: Are reviewed in the chart. General: This is a very thin underweight female sitting up in bed no acute distress. Pleasant and cooperative. Neck: Supple. HEENT: Sclerae are anicteric. No erythema. Moist mucous membranes. Lungs: No increased work of breathing. Normal chest rise. Skin: Is warm, dry, intact. Neuro: Mental status. She is awake and alert. She appears oriented. She is no longer even slow to respond to questions like she was yesterday. She is able to tell me remote and recent events. Her language is intact. PERRL. Conjugate gaze. Ocular movements are full. Face symmetric with equal activation. She is moving all of her extremities equally and no asymmetry observed, no evidence of incoordination observed. DIAGNOSTICS: A routine EEG was personally reviewed. It shows mild to moderate generalized background slowing indicative of a mild to moderate nonspecific encephalopathy. No epileptiform discharge and no seizures were seen on the current study which does not rule out an underlying seizure disorder. LABS: Reviewed in the chart. BUN 16, creatinine 0.4, prealbumin 16.8, B12 778, folate 28.5, TSH 0.03, free T4 1.0, she is on Synthroid, free T3 1.2, total T3 0.5 both of those are low, cortisol 15.9. ASSESSMENT/PLAN: 66-year-old female with right frontal encephalomalacia on imaging admitted with encephalopathy now resolved. MRI did not show any acute findings. There was no evidence of stroke. Her symptoms lasted well over 24 hours and so I would expect to see an infarct on imaging should that have been the cause. Her EEG did not show any evidence of increased propensity for seizure at least on the current study. It is reassuring that she has improved. From a neurologic standpoint I see no clear reason for her encephalopathy. There may be an underlying metabolic issue. I also spoke with the patient and her sister about being careful with her home medications including gabapentin and making sure that she is not taking this incorrectly. Thank you for this consultation. cc: Reta Logan MD
[2017-03-07 15:09] VITALS: BP 121/79
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
[2017-03-08] MEDS ORDERED: SYNTHROID PO SCH (07:00)
[2017-03-09] MEDS ORDERED: BONIVA PO SCH (09:00)
== END 2017-03-07 17:15 | disposition home or self-care (01) ==
LOC: 3N 18:41 → ED 18:41 → SUATTDRO 22:38 → 3N 23:37
PROVIDERS: ATTEND Internal Medicine

== ENCOUNTER 2018-11-16 13:46 | Inpatient (IN) ==
[2018-11-16 14:25] LABS: BASO# 0.06 X1000 (0.0-0.2); BASO% 0.2 % (0.0-0.8); EOS# 0.05 X1000 (0.0-0.7); EOS% 0.1 % (0.0-10.0); HEMOGLOBIN 14.2 g/dL (12.0-16.0); IMM GRAN# 0.47 X1000 (0.0-0.04); IMM GRAN% 1.4 % (0.0-0.5); LYMPH# 0.76 X1000 (1.2-3.4); LYMPH% 2.2 % (20.5-51.1); MCH 30.9 PG (27-31); MCHC 33.8 g/dL (33-37); MCV 91.3 FL (81-99); MONO# 0.84 X1000 (0.11-0.59); MONO% 2.4 % (1.7-9.3); MPV 10.1 FL (7.4-10.4); NEUT# 32.27 X1000 (1.4-6.5); NEUT% 93.7 % (42.2-75.2); PLT 307 X1000 (130-400); WBC 34.45 X1000 (4.8-10.8)
[2018-11-16 14:41] LABS: AGAP 10; ALKALINE PHOSPHATASE 174 U/L (32-104); AMYLASE 86 U/L (20-200); BUN 33 mg/dL (8-22); CALCIUM 9.7 mg/dL (8.8-10.2); CHLORIDE 90 mmol/L (98-107); COSMO 268; CREATININE 0.6 mg/dL (0.5-0.9); ESTIMATED GFR > 60; GLUCOSE 156 mg/dL (70-104); GOT 18 U/L (10-30); GPT 15 U/L (10-36); LIPASE 20 U/L (13-60); POTASSIUM 4.6 mmol/L (3.5-5.1); SODIUM 128 mmol/L (136-145); TCO2 28 mmol/L (25-35); TOTAL PROTEIN 7.9 g/dL (6.3-8.3)
[2018-11-16 14:47] LABS: BANDS 3 % (0-1); LYMPHS 2 % (21-51); SEGS 93 % (42-75)
[2018-11-16 14:55] LABS: URINE SOURCE CLEAN CATCH
[2018-11-16 15:05] LABS: UR EPITHELIAL CELLS <10 /HPF (<10); URINE BACTERIA NEGATIVE /HPF; URINE RBC <10 /HPF (<10); URINE WBC <10 /HPF (<10)
[2018-11-16 15:06] LABS: BILIRUBIN URINE SMALL (NEGATIVE); BLOOD URINE NEGATIVE (NEGATIVE); COLOR YELLOW; GLUCOSE URINE NEGATIVE (NEGATIVE); KETONE URINE 20 mg/dL (NEGATIVE); LEUKOCYTES URINE NEGATIVE (NEGATIVE); NITRITE URINE NEGATIVE (NEGATIVE); PROTEIN URINE 30 mg/dL (NEGATIVE); SP GRAVITY URINE 1.029; TURBIDITY URINE CLEAR (CLEAR); UROBILINOGEN URINE NORMAL (NORMAL)
[2018-11-16] MEDS ORDERED: ZOFRAN IV ONE (15:24)
[2018-11-16] MEDS ORDERED: NS 1,000 ML IV ONE (15:24)
--- NOTE | 2018-11-16 15:34 | PROVIDER DOCUMENTATION ---
HPI-Abdominal Pain/GI Problem - General Chief Complaint: Abdominal Pain Stated Complaint: ABD PAIN Time Seen by Provider: 11/16/18 15:11 Source: patient Allergies/Adverse Reactions: Patient Allergies Allergy/AdvReac Type Severity Reaction Status Date / Time Penicillins Allergy Severe ANAPHYLAXIS Verified 03/04/17 19:30 promethazine HCl * Allergy Severe ANAPHYLAXIS Verified 03/04/17 19:30 [From Phenergan] hydrocodone bitartrate * AdvReac Mild ITCHING Verified 03/04/17 19:30 [From Lorcet (hydrocodone)] propoxyphene napsylate * AdvReac Mild ITCHING Verified 03/04/17 19:30 [From Darvocet-N 100] Home Medications: Home Medication List Medication Instructions Recorded Confirmed Last Taken Type Fluticasone 50 Mcg Nasal [place] 2 spray BILLIE DAILY #1 bottle 01/18/14 10/04/18 19:00 Rx [Flonase] 2 Levothyroxine [Synthroid] 75 microgm PO DAILY 01/18/14 03/05/17 10/04/18 08:00 History 75 Gabapentin 1 cap PO Q6-8H PRN PRN 03/05/17 03/05/17 Unknown History Ibandronate [Boniva] 150 mg PO Q30D 03/05/17 03/05/17 1 Month Ago History ~09/07/18 150 Aspirin/Acetaminophen/Caffeine 1 dose PO DAILY PRN PRN 10/05/18 10/05/18 10/05/18 06:00 History [[place] Ex-Str Powder Packet] 1 Nebivolol [Bystolic] 1 tab PO DAILY 10/05/18 10/05/18 10/04/18 13:00 History 1 - History of Present Illness-ABD Nature of Presenting Problems: HPI: Pt presents to ED with abdominal pain. she states she has not had a BM in >4 days, not able to tolerate PO intake for 2 days, feels her abdomen is distended, painfu, diffuse, comes and goes. She states she has lung cancer and is being treated with Lunesta her last treatment was last week. She saw dr alvarez monday. She also complains of nausea, no vomiting. Abdominal Pain Onset Location: reports: epigastric, periumbilical Pain Radiation: reports: no radiation Quality of Pain: reports: dull, fullness, indigestion Severity in ED: reports: moderate Onset/Duration: reports: 4 days ago Timing: reports: still present Activities at Onset: reports: none Exposure to sick contacts?: No Modifying Factors: improves with: nothing Associated Symptoms: reports: constipation, fatigue, fever/chills, heartburn, nausea, swelling/mass in abdomen, weakness. denies: shortness of breath, pain with inspiration, vomiting Last BM: 4 days ago Dark Stools Present?: reports: none noticed Rectal Bleeding: reports: none Rectal Pain: reports: none Emesis Description: reports: none Bruising or Bleeding Gums?: No Similar Symptoms Previously?: No Recently seen or treated by another doctor?: Yes Review of Systems - Adult - REVIEW OF SYSTEMS - ADULT Constitutional: reports: no symptoms reported Eyes: reports: no symptoms reported Ears, Nose, Mouth & Throat: reports: no symptoms reported Cardiovascular: reports: no symptoms reported Respiratory: reports: see HPI, other (lung ca) Gastrointestinal: reports: see HPI, abdominal pain, constipation, nausea, poor appetite. denies: vomiting Genitourinary: reports: no symptoms reported Musculoskeletal: reports: no symptoms reported Integumentary: reports: no symptoms reported Neurological: reports: no symptoms reported Psychiatric: reports: no symptoms reported Endocrine: reports: no symptoms reported Hematologic/Lymphatic: reports: no symptoms reported Allergic/Immunologic: reports: no symptoms reported All Other Systems: Reviewed and Negative Past History - Adult - PAST MEDICAL HISTORY-ADULT Review of Records: reports: Old Records Reviewed, Nursing Assessment Review, Medications Reviewed, Social history reviewed & non-contributory. Major Childhood Illnesses: reports: denies history Cardiovascular: reports: denies history Respiratory: reports: COPD Gastrointestinal: reports: denies history Obstetrical/Gynecological: reports: denies history Genitourinary: reports: denies history Musculoskeletal: reports: denies history Neurological: reports: denies history Endocrine/Immune: reports: thyroid disorder Other Conditions: reports: denies history - PRIOR SURGERIES/PROCEDURES Surgical/Procedure History: reports: hysterectomy - IMMUNIZATION STATUS Childhood Immunizations: See Nurse Assessment Flu Vaccine: See Nurse Assessment - FAMILY HISTORY Family History: reviewed, not pertinent - SOCIAL HISTORY Smoking: denies Substance Use: none/never Alcohol Use Frequency: never Physical Exam-General - PHYSICAL EXAM-ADULT Initial Vital Signs Reviewed: Yes - CONSTITUTIONAL General Appearance: alert, mild distress, cachetic, thin. negative: appears well - EYES Eyes: PERRL/EOMI, pink conjunctivae - HEAD, EARS, NOSE, MOUTH & THROAT HENMT: normocephalic/atraumatic, moist mucous membranes - NECK Neck: non-tender, full range of motion, supple - RESPIRATORY Respiratory: chest non-tender, lungs clear, normal breath sounds, decreased breath sounds. negative: respiratory distress, crackles, rales, rhonchi, strido r, wheezing - CARDIOVASCULAR Cardiovascular: normal peripheral pulses, regular rate, rhythm, no edema, tachycardia. negative: bradycardia - GASTROINTESTINAL (ABDOMEN) Abdominal Exam: soft, distended, tenderness. negative: normal bowel sounds, non tender, no organomegaly, no pulsatile mass, abdominal bruit, guarding, rigid, rebound - LYMPHATIC Lymphatic: no adenopathy, axilla node tender, cervical node tenderness - MUSCULOSKELETAL Back Exam: normal inspection, no CVA tenderness Extremity: normal range of motion, non-tender, normal gait Peripheral Pulses: radial (R): 2+, radial (L): 2+, dorsalis-pedis (R): 2+, dorsalis-pedis (L): 2+ - SKIN Integumentary: normal color, normal turgor, warm/dry - NEUROLOGIC Neurologic: grossly normal, no motor/sensory deficits. negative: focal weakness, motor weakness - PSYCHIATRIC Psych/Mental Status: normal mood/affect, normal thought content, normal thought process, oriented x 3 Progress - PLAN OF CARE/RESULTS Progress/Plan/Lab Results: Vital Signs - 8 hr 11/16/18 13:49 11/16/18 15:03 Temperature 97.6 F Pulse Rate 95 H Respiratory Rate 18 Blood Pressure 132/87 122/86 O2 Sat by Pulse Oximetry 96 97 Laboratory Results - last 24 hr 11/16/18 11/16/18 11/16/18 14:06 14:06 14:51 WBC 34.45 H RBC 4.60 Hgb 14.2 Hct 42.0 MCV 91.3 MCH 30.9 MCHC 33.8 RDW Std Deviation 15.0 H Plt Count 307 MPV 10.1 Immature Gran % (Auto) 1.4 H Neut % (Auto) 93.7 H Lymph % (Auto) 2.2 L [place] % (Auto) 2.4 Eos % (Auto) 0.1 Baso % (Auto) 0.2 Immature Gran # (Auto) 0.47 H Neut # (Auto) 32.27 H Lymph # (Auto) 0.76 L [place] # (Auto) 0.84 H Eos # (Auto) 0.05 Baso # (Auto) 0.06 Segmented Neutrophils 93 H Band Neutrophils 3 H Lymphocytes 2 L Metamyelocytes 2.0 Sodium 128 L Potassium 4.6 Chloride 90 L Carbon Dioxide 28 Anion Gap 10 BUN 33 H Creatinine 0.6 Estimated GFR/1.73 m2 > 60 BUN/Creatinine Ratio 55 Glucose 156 H Calculated Osmolality 268 Calcium 9.7 Total Bilirubin 0.70 AST 18 ALT 15 Alkaline Phosphatase 174 H Total Protein 7.9 Albumin 4.0 Globulin 3.9 Albumin/Globulin Ratio 1.0 Amylase 86 Lipase 20 Urine Source CLEAN CATCH Urine Color YELLOW Urine Turbidity CLEAR Urine pH 6.0 Ur Specific [place] 1.029 Urine Protein 30 A Ur Glucose (Stick) NEGATIVE Ur Ketones (Stick) 20 A Urine Blood NEGATIVE Urine Nitrite NEGATIVE Urine Bilirubin SMALL A Urobilinogen Dipstick NORMAL Urine Leukocytes NEGATIVE Urine WBC (Auto) <10 Urine RBC (Auto) <10 U Epithel Cells (Auto) <10 Urine Bacteria (Auto) NEGATIVE Orders Category Date Time Status Saline Loc DIRECTED Care 11/16/18 13:59 Active Saline Loc NOW Care 11/16/18 15:24 Active NPO Diet 11/16/18 13:59 Active FLAT/UPRIGHT ABD/1 VIEW CHEST [RAD] Stat Exams 11/16/18 15:23 Ordered AMYLASE [CHEM] Stat Lab 11/16/18 14:06 Completed CBC WITH ELECTRONIC DIFF [HEME] Stat Lab 11/16/18 14:06 Completed COMPREHENSIVE METABOLIC PANEL [CHEM] Stat Lab 11/16/18 14:06 Completed LIPASE [CHEM] Stat Lab 11/16/18 14:06 Completed URINALYSIS W/POSS RFLX CULT [URINALYSIS] Stat Lab 11/16/18 14:51 Completed 0.9% Sodium Chloride Inj [Ns] 1,000 ml Med 11/16/18 15:24 Active IV 999 mls/hr Ondansetron [Zofran] Med 11/16/18 15:24 Discontinued 4 mg IV NOW ONE A/P: Colonic obstruction vs dynamic illius, elevated WBC >38K, hyponatremic 124, no po intake x 2 days. no BM x $ days, vitals stable. will admit, hospitalist and surgery notified Dr Hernandez. Result Diagrams: 11/16/18 14:06 11/16/18 14:06 - XRAY 1 XRAY Study: Chest, Abdomen Impression: Abnormal ([facility] [address], [address], [place] [address] Department of Imaging Patient: ELI GAN Date: 11/16/18MR#: [id number] : 1950ADM Status: PRE ERAcct#: [id number] Age/Sex: 68/FRoom/Bed: Loc: ED Ordering Physician: Jez Alvarado MD Family Physician: Kosta Rodriguez MD Reason for Procedure: abdominal pain, no BM x 3 ___ Signed EXAM: FLAT/UPRIGHT ABD/1 VIEW CHEST 11/16/2018 HISTORY: abdominal pain, no BM x 3 TECHNIQUE: Flat and upright abdomen with PA chest COMMENT: There is a large amount of gas throughout the colon. There is no definite evidence for organomegaly or mass. There may be some stool in the distal colon. There is ill-defined opacity in the left lower lobe which was not present on 10/05/2018. There are old posttraumatic rib changes on the left. IMPRESSION: 1. Colonic ileus versus distal colonic obstruction. This may be due to fecal impaction. 2. Left lower lobe pneumonia. Electronically signed by Hector Jackson 11/16/2018 3:41 PM 11/16/18 1541 Interpreting Physician: Hector Jackson MD Dictated Date/Time: 11/16/18 1538 cc: Jez Alvarado MD; Kosta Rodriguez MD) - CONSULTS/PCP/HOSPITALIST Notification #1 *Consult/PCP/Hospitalist*: Dr hernandez Time Discussed: 16:02 Consult Disposition: Admit (call back with CT scan results) #2 Consult: Hospitalist Consult Disposition: Admit #3 Consult: Dr Alvarez Time Discussed: 15:45 Consult Disposition: Admit Departure - Departure Date of Disposition Decision: 11/16/18 Time of Disposition Decision: 16:13 DIAGNOSIS: Pneumonia, Hyponatremia, Dehydration, Large bowel obstruction DIAGNOSIS: (Ruled Out): Large bowel bleed Disposition: ADMITTED INPATIENT 09 Certified Medical Emergency: Emergent Condition: Stable Referrals and Follow-Ups: Kosta Rodriguez MD [Primary Care Provider] - Discharge Education: Steps to Quit Smoking, [id number] - Critical Care Note This patient required my direct & personal management of CC.: No Attestation - Physician/ WILY Attestation Patient care was provided by Advanced Practice Provider:: No The physician spent face to face time with patient:: Yes Advanced Practice Provider documentation review:: Supervising physician onsite and consulted in the evaluation and care of this patient. The physician did have a face to face encounter with the patient.
--- NOTE | 2018-11-16 15:43 | Diag Imaging Result Doc PS360 ---
EXAM: FLAT/UPRIGHT ABD/1 VIEW CHEST 11/16/2018 HISTORY: abdominal pain, no BM x 3 TECHNIQUE: Flat and upright abdomen with PA chest COMMENT: There is a large amount of gas throughout the colon. There is no definite evidence for organomegaly or mass. There may be some stool in the distal colon. There is ill-defined opacity in the left lower lobe which was not present on 10/05/2018. There are old posttraumatic rib changes on the left. IMPRESSION: 1. Colonic ileus versus distal colonic obstruction. This may be due to fecal impaction. 2. Left lower lobe pneumonia. Electronically signed by Hector Jackson 11/16/2018 3:41 PM
[2018-11-16] MEDS ORDERED: MORPHINE IV ONE (15:44)
[2018-11-16] MEDS ORDERED: AZACTAM 1 GM in NS 50 ML IV ONE (15:47)
[2018-11-16] MEDS ORDERED: LEVAQUIN 750 MG/D5W 750 MG/150 ML IVPB IV ONE (16:01)
--- NOTE | 2018-11-16 16:57 | Diag Imaging Result Doc PS360 ---
EXAM: CT THORAX/ABD/PELVIS W/O CON 11/16/2018 HISTORY: adnominal pain and distension LLL pn TECHNIQUE: This exam was performed using automated exposure control, adjustment of mA or kV according to patient size, and/or use of iterative reconstruction technique. COMMENT: The current examination is compared with the previous thorax of 08/24/2018. There are no previous abdominal studies. There are extensive small nodular and tree-in-bud opacities throughout the left lower lobe which was not the case on the previous examination. Some linear fibrotic appearing opacities present previously are again noted. There is a lobulated nodule present in the medial right lower lobe which was also demonstrated on the previous examination and which has not changed significantly in size or appearance. Some secretions are seen in the distal bronchial branches of the right lower lobe and the left lower lobe. Some bronchiectatic changes are present in the medial segment of the right middle lobe. There is some gas and secretions in the esophagus. The possibility of aspiration pneumonia cannot be excluded. ABDOMEN: There is marked gaseous dilatation of the colon with air-fluid levels in the cecum transverse and descending colon. Some fecal debris is seen distally in the descending colon. There is apparently impacted stool in the sigmoid colon. There is severe diverticulosis in the sigmoid colon. No definite diverticulitis is present. There are some fluid-filled small bowel loops which are not distended seen in the pelvis. The aorta is calcified but not distended. There is an apparent stone in the lower pole of the left kidney measuring 4 mm in diameter. There is a tiny stone in the lower pole on the right side. No evidence of hydronephrosis is present. Pelvis there are some calcifications in the uterus. There is no evidence of free fluid. The urinary bladder is not distended. There is no evidence of significant adenopathy. There are apparent old posttraumatic changes in the inferior pubic rami particularly the right. No acute bony abnormalities are present. IMPRESSION: 1. Bronchopneumonia particularly in the left lower lobe which may be due to aspiration. Retained fluid and solid contents in the esophagus. 2. Fecal impaction in the sigmoid colon. The possibility of a stricture in the sigmoid is suggested. Dilatation of the remainder of the colon. Electronically signed by Hector Jackson 11/16/2018 4:55 PM
[2018-11-16 17:20] LABS: INR 0.96; PROTIME 13.6 Seconds (11.0-16.0)
[2018-11-16 17:21] LABS: PTT 36.2 Seconds (22.3-41.8)
--- NOTE | 2018-11-16 17:32 | HISTORY AND PHYSICAL ---
PRIMARY CARE PHYSICIAN: Kosta Rodriguez MD ONCOLOGIST: Gino Charles MD CHIEF COMPLAINT: Epigastric and periumbilical abdominal pain with no bowel movement greater than 4 days and has been unable to eat for 2 days with nausea, but denied vomiting. HISTORY OF PRESENTING ILLNESS: This is a 68-year-old female, who presented to [facility] with complaints of epigastric and periumbilical abdominal pain with no bowel movement in greater than 4 days. States she has been unable to eat for the past 2 days and had significant nausea, but denied any vomiting. She is currently being treated for lung cancer with her last treatment being a week and a half ago. Workup in the emergency room showed a white blood cell count of 34.45. Sodium was 128. We did an abdomen x- ray that showed a colonic ileus versus distal colonic obstruction that may be due to fecal impaction and a left lower lobe pneumonia. We did a CT of the abdomen and pelvis that was read as an impression of a bronchopneumonia, particularly in the left lower lobe which may be due to aspiration with retained food and solid contents in the esophagus and a fecal impaction in the sigmoid colon. The possibility of a stricture in the sigmoid is suggested. Dilation of the remainder of colon. She is being admitted for further evaluation and treatment. PAST MEDICAL HISTORY: Lung cancer, COPD, and hypothyroidism. PAST SURGICAL HISTORY: Hysterectomy. FAMILY HISTORY: Reviewed and noncontributory. SOCIAL HISTORY: Currently lives with family. Denies any tobacco, alcohol, or illicit drug use. ALLERGIES: Penicillin, promethazine, hydrocodone, propoxyphene. HOME MEDICATIONS: A current list will need to be obtained, reviewed, reconciled, and restarted as appropriate. I will place an order for Nursing to update and confirm home medications. DIAGNOSTIC STUDIES: Laboratory data showed a white blood cell count of 34.45, hemoglobin 14.2, hematocrit 42, platelets 307,000. Sodium 128, potassium 4.6, chloride 90, CO2 of 28, BUN of 33, creatinine 0.6, glucose 156. Amylase 86, lipase 20. Urinalysis was negative. Abdomen x-ray showed a colonic ileus versus a distal colonic obstruction that may be due to fecal impaction and a left lower lobe pneumonia. CT of the abdomen and pelvis showed an impression of bronchopneumonia, particularly in the left lower lobe which may be due to aspiration, retained fluid and solid contents in the esophagus, fecal impaction in the sigmoid colon, and the possibility of stricture in the sigmoid is suggested by dilation of the remainder of colon. A CT of the chest is pending. REVIEW OF SYSTEMS: She denied any fever, chills, blurred vision, dizziness, chest pain, coughing, shortness of breath. She has had periumbilical and epigastric abdominal pain and nausea. Denied any vomiting or burning or hurting with urination. PHYSICAL EXAMINATION: VITAL SIGNS: On arrival she had a temperature of 97.6 degrees, pulse 95, respirations 18, blood pressure 137/87, saturating 96% on room air. GENERAL: This is a 68-year-old female, who is lying in the bed and answers questions appropriately. HEMNT: Normocephalic, atraumatic. Normal ENT inspection. Oropharynx and nares are clear. EYES: Pupils are equal, round, and reactive to light and accommodation. Extraocular movements are intact. NECK: Normal inspection. Normal range of motion. LUNGS: With decreased breath sounds bilaterally posteriorly. Equal lung expansion and chest wall movement noted. HEART: Regular rate and rhythm. No murmurs, rubs, or gallops. ABDOMEN: Mildly distended and mildly tender. Bowel sounds are hypoactive x4 quadrants. MUSCULOSKELETAL: She has 5/5 strength x4 extremities. NEUROLOGICAL: The cranial nerves 2-12 appear grossly intact. ASSESSMENT: 1. Ileus versus fecal impaction. 2. Left lower lobe bronchopneumonia with possible aspiration. 3. Leukocytosis. 4. Hyponatremia. 5. Lung cancer with current chemotherapy. 6. Hypothyroidism. PLAN: She is being admitted to the medical unit, held n.p.o. Normal saline at 125 mL an hour, Levaquin 750 mg IV q.24 h., DuoNeb q.4 h. Incentive spirometry. We are going to consult General Surgery. Update and confirm home medications. Recheck a CBC, BMP in the a.m. and give tap water enema x2. Further orders after seen by attending and by wireless consultant. Dictated by ENRIQUE Oliva for Onel Trinh MD cc: ENRIQUE Oliva MD Sammy Becdach, MD Agree with above. the following is my own face to face assessment. Patient with constipation and abdominal pain. found to be ileus vs distal obstruction on imaging. bowel sounds decreased on exam. will treat conservatively and consult GI. MTDD
[2018-11-16] MEDS: NS 1,000 ML IV SCH (18:14)
[2018-11-16] MEDS: TYLENOL PO PRN (18:14)
--- NOTE | 2018-11-16 18:53 | GENERAL SURGERY CONSULTATION ---
DATE: 11/16/2018 REQUESTING PHYSICIAN: Hospitalist service. REASON FOR CONSULTATION: Severe constipation, possible colonic stricture. HISTORY OF PRESENT ILLNESS: A 68-year-old female who presented to the emergency department with complaints of epigastric and periumbilical pain, no bowel movement for 4 days. She has also had significant nausea. She is currently being treated for lung cancer and had her last treatment a week and a half ago. She had a CT scan that showed significant colonic dilatation with solid components in the esophagus and fecal impaction in the sigmoid colon, possibility of stricture. She does not really have significant abdominal pain, but she is significantly bloated. I was asked to weigh an opinion. PAST MEDICAL HISTORY: 1. Lung cancer. 2. COPD. 3. Hypothyroidism. PAST SURGICAL HISTORY: Includes hysterectomy. FAMILY HISTORY: Reviewed with the patient, noncontributory. SOCIAL HISTORY: Lives with family. ALLERGIES: Penicillin, promethazine, hydrocodone, propoxyphene. MEDICATIONS: Home medications currently being reviewed. REVIEW OF SYSTEMS: A full 10-point review of systems obtained and negative except as specified in the HPI. PHYSICAL EXAMINATION: Vital Signs: The patient is currently afebrile. Her vital signs are stable. General: No acute distress. Ill-appearing female looks stated age. HEENT: Normocephalic, atraumatic. Pupils equal, round and reactive to light. Mucous membranes moist. Oropharynx benign. Neck: Supple. Trachea midline. Cardiovascular: Regular rate and rhythm. Lungs: Grossly clear. Abdomen: Distended and tympanic to percussion, but no real peritoneal signs. Extremities: Moves all extremities. Neurologic: Grossly intact. Skin: No signs of jaundice. Vascular: All extremities perfused. LABORATORY DATA: White blood count 34,000, platelet count 307,000, hematocrit 42. Sodium is 128. The remainder of labs reviewed. DIAGNOSTIC DATA: CT scan independently reviewed and radiology report reviewed. ASSESSMENT AND PLAN: A 68-year-old female with ileus versus fecal impaction and stricture. 1. Multiple medical comorbidities, currently being managed by the hospitalist service. We will defer to them. 2. History of lung cancer. She is currently being followed by Dr. Charles. She had her most recent treatment a week and a half ago, and she also had medication to stimulate her white blood cell count, which may be contributing to her leukocytosis. 3. Leukocytosis. Please see above. 4. Ileus versus colonic stricture. At this time, we will give her gentle enemas to see if we can break it up. She will probably need some kind of barium enema and/or colonoscopy to evaluate this area further. At this point we would like to try to hold off on surgery. 5. Possible bronchopneumonia, possible aspiration. At this time she has been started on antibiotics by the hospitalist service. Agree with plan. cc: MD ANDRIA Domingo
[2018-11-16] MEDS: DUONEB (A & A) INH SCH ×2 (19:00→23:26)
[2018-11-17] MEDS: TYLENOL PO PRN ×4 (02:15→20:40)
[2018-11-17] MEDS: NS 1,000 ML IV SCH ×4 (02:15→19:23)
[2018-11-17] MEDS: DUONEB (A & A) INH SCH ×6 (03:18→23:12)
--- NOTE | 2018-11-17 06:25 | GENERAL SURGERY PROGRESS NOTE ---
DATE: 11/17/2018 SUBJECTIVE: Patient seems to be doing okay. She has got a little bit of abdominal discomfort. OBJECTIVE: Vital Signs: Patient is currently afebrile. Her vital signs are stable. General: No acute distress. Cachectic female, looks stated age. HEENT: Normocephalic, atraumatic. Pupils equal, round, reactive to light. Mucous membranes moist. Oropharynx benign. Neck: Supple. Trachea midline. Cardiovascular: Regular rate and rhythm. Lungs: Grossly clear. Abdomen: Distended and tympanic. No real peritoneal signs. Extremities: Moves all extremities. Neurologic: Grossly intact. Skin: No signs of jaundice. Vascular: All extremities perfused. LABORATORY: None this morning as of yet. ASSESSMENT AND PLAN: A 68-year-old female with ileus versus fecal impaction versus stricture. 1. Multiple medical comorbidities currently being managed by the hospitalist service. 2. History of lung cancer, being followed by Dr. Charles. Again, she did receive medication to stimulate her white blood cell count last week, which may be contributing to her leukocytosis. 3. Leukocytosis. Please see above. 4. Ileus versus colonic stricture versus impaction. At this time, we will continue giving her enemas. If this does not seem to work the next couple of days, we may need to get Gastroenterology involved to see if they can do a colonoscopy to decompress her. We will try to hold off on surgery. 5. Possible bronchopneumonia with possible aspiration. At this time, she is on antibiotics. Defer to the hospitalist service. We will try to keep her NPO given the fact that she might be aspirating. cc: Hermes Hernandez MD
[2018-11-17] MEDS: FLEET ENEMA PR PRN ×2 (06:32→09:42)
[2018-11-17] MEDS ORDERED: FLEET ENEMA PR ONE ×2 (11:06→11:15)
[2018-11-17] MEDS: MORPHINE IV PRN ×3 (11:16→22:49)
[2018-11-17 11:44] LABS: AGAP 11; BUN 24 mg/dL (8-22); CALCIUM 7.4 mg/dL (8.8-10.2); CHLORIDE 97 mmol/L (98-107); COSMO 263; CREATININE 0.4 mg/dL (0.5-0.9); ESTIMATED GFR > 60; GLUCOSE 73 mg/dL (70-104); POTASSIUM 4.1 mmol/L (3.5-5.1); SODIUM 130 mmol/L (136-145); TCO2 22 mmol/L (25-35)
[2018-11-17 12:12] LABS: BASO# 0.02 X1000 (0.0-0.2); BASO% 0.1 % (0.0-0.8); EOS# 0.02 X1000 (0.0-0.7); EOS% 0.1 % (0.0-10.0); HEMATOCRIT 35.9 % (37.0-47.0); HEMOGLOBIN 12.1 g/dL (12.0-16.0); IMM GRAN# 0.25 X1000 (0.0-0.04); IMM GRAN% 1.2 % (0.0-0.5); LYMPH% 1.9 % (20.5-51.1); MCH 31.4 PG (27-31); MCHC 33.7 g/dL (33-37); MCV 93.2 FL (81-99); MONO# 0.43 X1000 (0.11-0.59); MONO% 2.1 % (1.7-9.3); MPV 9.7 FL (7.4-10.4); NEUT# 19.57 X1000 (1.4-6.5); NEUT% 94.6 % (42.2-75.2); PLT 234 X1000 (130-400); RBC 3.85 XMIL (4.2-5.4); RDW 15.2 % (11.5-14.5); WBC 20.69 X1000 (4.8-10.8)
[2018-11-17 12:14] LABS: BANDS 6 % (0-1); LYMPHS 2 % (21-51); MONO 2 % (1-9); SEGS 90 % (42-75)
--- NOTE | 2018-11-17 13:31 | Diag Imaging Result Doc PS360 ---
EXAM: BARIUM ENEMA 11/17/2018 HISTORY: ileus versus impaction by CT TECHNIQUE: Limited water-soluble enema, 15 images, one minute 20 seconds fluoroscopy time, four mGy. COMMENT: Water-soluble contrast was instilled per rectum demonstrating severe diverticulosis of the sigmoid colon. There is a large amount of stool present proximal to the sigmoid colon which was displaced during the procedure. The contrast column reaches the splenic flexure and proximal transverse colon which is markedly distended with gas. The study was terminated at this point. IMPRESSION: Sigmoid diverticulosis. Fecal impaction which was displaced during the examination. This is not, however evacuated. Electronically signed by Hector Jackson 11/17/2018 1:29 PM
--- NOTE | 2018-11-17 13:53 | PROGRESS NOTE ---
DATE: 11/17/2018 INTERVAL HISTORY: The patient with only minimal stool output despite enema x2 last night. Still some significant abdominal distention. No vomiting but still some mild nausea. No other events overnight. No new complaints. REVIEW OF SYSTEMS: Twelve point review of system except as per interval history. LABS: WBC 20.6, hemoglobin 12.1, hematocrit 35.9 and platelets 334,000. Sodium 130, potassium 4.1, chloride 97, bicarb 22, BUN 24, creatinine 0.4. Calcium 7.4. OBJECTIVE: Vitals: T-max 98.1, pulse 77, respirations 18, blood pressure 115/74, O2 saturation 93% on room air. General: Very thin, cachectic but no acute distress, chronically ill appearing. HEENT: Normocephalic, atraumatic. Moist mucous membranes. Poor dentition. Cardiovascular: Regular rate and rhythm. No murmurs noted. Lungs: Clear to auscultation bilaterally. No wheezing, rales or rhonchi noted. Abdomen: Distended and tight, nontender. No rebound or guarding. Bowel sounds markedly decreased. Extremities: Peripheral pulses intact. No clubbing, cyanosis or edema. Neurologic: Cranial nerves grossly intact. No focal deficits identified. Psychiatric: Normal mood and affect, awake and alert. Skin: No new rashes or lesions noted. ASSESSMENT AND PLAN: 1. Ileus versus fecal impaction, possible sigmoid stricture. The patient was given enemas x2 last night with little effect. We will try again this morning. May end up needing manual disimpaction. Once the patient's stool burden is reduced, either barium enema study versus sigmoidoscopy to evaluate possible stricture. 2. Possible retained food in the esophagus. On CT, patient with possible retained food in the esophagus. The patient does not report any pain or choking with swallowing, but does report that food is difficult to get down. Also with pneumonia that may be aspiration related. Asking GI to see. Patient may end up needing an EGD. 3. Leukocytosis. The patient with underlying lung cancer and recently received GCSF. Likely related to this, although she does appear to have pneumonia on CT scan that could be contributing. Trending down today. 4. Left lower lobe pneumonia, possibly aspiration. Patient placed on Levaquin for her pneumonia. No fever. Leukocytosis as above. Oxygenating reasonably well on room air. Continue to monitor. 5. Lung cancer. Patient following with Dr. Charles, is still on active chemo. 6. Hypothyroidism. If the patient remains unable to take reasonable p.o. then will likely transition to IV Synthroid in the next day or 2. We will see how she does today. 7. Hypocalcemia, unchanged from previous. We will check ionized and replete if needed. 8. Hyponatremia, slightly improved fluids overnight. Will continue IV fluids and monitor. [facility]
[2018-11-17] MEDS: LEVAQUIN 750 MG/D5W 750 MG/150 ML IVPB IV SCH (15:24)
--- NOTE | 2018-11-17 16:31 | GASTROENTEROLOGY CONSULTATION ---
DATE: 11/17/2018 REASON FOR CONSULTATION: Impaction versus ileus and abnormal CT showing food contents in the esophagus. HISTORY OF PRESENT ILLNESS: This is a 68-year-old white female who reports onset of epigastric and abdominal pain with no bowel movement for over 4 days. She states she has been unable to eat anything. She has had nausea. She is currently undergoing treatment for lung cancer by Dr. Charlse. Last treatment was approximately a week and a half ago. She came into the emergency room for evaluation. She had elevated white blood cell count 34.45. X-ray showed colonic ileus versus distal colonic obstruction. May be due to fecal impaction. Also noting left lower lobe pneumonia. She also had noted rib pain, food and solid contents in the esophagus along with fecal impaction in the sigmoid colon. The possibility of stricture in the sigmoid colon was suggested with dilation of the remainder of the colon. It was noted patient has complained of abdominal pain, nausea, unable to eat and no bowel movement for over 4 days. PAST MEDICAL HISTORY: Lung cancer, COPD hypothyroidism. PAST SURGICAL HISTORY: Hysterectomy. ALLERGIES: Penicillin causing anaphylaxis, Phenergan anaphylaxis, Lorcet itching, Darvocet itching. HOME MEDICATIONS: Dexamethasone daily, Synthroid 75 mcg daily, Bystolic 1 tablet daily. SOCIAL HISTORY: Lives with family. Denies alcohol or tobacco use. REVIEW OF SYSTEMS: Per history of present illness. PHYSICAL EXAMINATION: Vital Signs: Temperature 97.9 degrees, pulse 77, respirations 18, blood pressure 115/74. General: Patient is awake and alert. HEENT: Normocephalic, atraumatic. Pupils equal, round, reactive to light. Respiratory: Lung sounds with some decreased sounds bilaterally. Cardiovascular: Regular rate and rhythm. Abdomen: Distended, tympanic, bowel sounds noted. Neurological: Cranial nerves 2-12 grossly intact. Extremities: No lower extremity edema noted. LABORATORY: Hematology. WBC 20.69, hemoglobin 12.1, hematocrit 35.9, MCV 93.2, platelets 234,000. Chemistry sodium 130, potassium 4.1, chloride 97, CO2 of 22, BUN 24, creatinine 0.4, glucose 73, calcium 7.4, total bilirubin 0.70, AST 18, ALT 15, alkaline phosphatase 174. IMAGING: Abdominal pelvis CT scan showed bronchial pneumonia more on the left. Retained fluid and solid contents in the esophagus, fecal impaction in the sigmoid colon, possibility of a stricture in the sigmoid is suggested and dilation of the remainder of the colon. ASSESSMENT AND PLAN: 1. History of lung cancer. Following with Dr. Charles. 2. Leukocytosis. 3. Ileus versus colonic stricture versus impaction. Patient has had enemas with some results. Recommend barium enema with Gastrografin for further evaluation. 4. Bronchial pneumonia with possible aspiration. Continue to hold NPO for now. Further plans will be made according to results and her progress. I have discussed this case with Dr. Acuna. Thank you for this consultation. Dictated by ENRIQUE Guillory for Ian Acuna MD cc: ENRIQUE Barr MD
[2018-11-18] MEDS: TYLENOL PO PRN (02:17)
[2018-11-18] MEDS: DUONEB (A & A) INH SCH ×6 (03:22→23:10)
[2018-11-18] MEDS: MORPHINE IV PRN ×5 (03:29→23:51)
[2018-11-18] MEDS: NS 1,000 ML IV SCH ×3 (03:30→18:33)
[2018-11-18 07:42] LABS: BASO# 0.02 X1000 (0.0-0.2); BASO% 0.1 % (0.0-0.8); EOS# 0.02 X1000 (0.0-0.7); EOS% 0.1 % (0.0-10.0); IMM GRAN# 0.33 X1000 (0.0-0.04); IMM GRAN% 1.8 % (0.0-0.5); LYMPH# 0.44 X1000 (1.2-3.4); LYMPH% 2.4 % (20.5-51.1); MCH 31.2 PG (27-31); MCHC 33.3 g/dL (33-37); MCV 93.5 FL (81-99); MONO# 0.34 X1000 (0.11-0.59); MONO% 1.8 % (1.7-9.3); MPV 9.7 FL (7.4-10.4); NEUT# 17.49 X1000 (1.4-6.5); NEUT% 93.8 % (42.2-75.2); PLT 235 X1000 (130-400); RBC 3.85 XMIL (4.2-5.4); RDW 15.6 % (11.5-14.5); WBC 18.64 X1000 (4.8-10.8)
[2018-11-18 07:50] LABS: AGAP 11; BUN 17 mg/dL (8-22); CALCIUM 8.3 mg/dL (8.8-10.2); CHLORIDE 102 mmol/L (98-107); COSMO 267; CREATININE 0.3 mg/dL (0.5-0.9); ESTIMATED GFR > 60; GLUCOSE 52 mg/dL (70-104); POTASSIUM 4.2 mmol/L (3.5-5.1); SODIUM 134 mmol/L (136-145); TCO2 21 mmol/L (25-35)
[2018-11-18 08:27] LABS: BANDS 8 % (0-1); LYMPHS 4 % (21-51); MONO 2 % (1-9); SEGS 86 % (42-75)
--- NOTE | 2018-11-18 09:03 | PROGRESS NOTE ---
DATE: 11/18/2018 SUBJECTIVE: The patient notes overall she is feeling a little bit better. She is still having some abdominal tenderness. She states that she has had a little bit better bowel movements. PHYSICAL EXAM: Vital signs: Temp 98.2, pulse 84, respiratory rate 14, BP 136/89, sat 98% on room air. General: Patient is awake. She is in no current respiratory distress. HEENT: Normocephalic. Neck: Supple. CARDIOVASCULAR: Regular rate. Chest: Clear and nonlabored. Abdomen: Soft, slightly distended, still slightly diffusely tender. Bowel sounds decreased. Extremities: Moves all extremities. No edema. Neurologic: No focal changes. ASSESSMENT: 1. Ileus versus fecal impaction, very minimally. Yesterday showed sigmoid diverticulosis with fecal impaction. 2. Abdominal distention. 3. Leukocytosis, slightly improved from yesterday. White count is down to 18, which is a marked improvement from 34 on admission. 4. Left lower lobe pneumonia. 5. Lung cancer. 6. Hypothyroidism. 7. Hyponatremia, improved. 8. Hypocalcemia, improved. PLAN: We will continue the patient in the hospital. We will continue with supportive care. We continue to keep NPO for now. Continue IV fluids and Levaquin. cc: Alec Cisneros MD
--- NOTE | 2018-11-18 10:20 | GENERAL SURGERY PROGRESS NOTE ---
DATE: 11/18/2018 TIME SEEN: It is almost 10 in the morning. OBJECTIVE: Ms. Simon this morning has a distended abdomen. The abdomen is quiet. She is afebrile, heart rate 73, blood pressure 136/89. Her abdomen is not particularly tender. DIAGNOSTIC STUDIES: White count is down to 18,000. Her barium enema yesterday showed what appeared to be a fecal impaction. It was reportedly displaced during the exam. PLAN: I think we should try with larger-volume enemas today to see if we can evacuate the fecal impaction. If not, she may require colonoscopic removal. We will start her on some Clinimix for nourishment. cc: Cortez Hamilton MD
[2018-11-18] MEDS: CLINIMIX E 4.25%-5% SOLUTION 1,000 ML IV SCH ×2 (12:25→23:54)
--- NOTE | 2018-11-18 14:05 | GASTROENTEROLOGY PROGRESS NOTE ---
DATE: 11/18/2018 SUBJECTIVE: The patient is resting comfortably. She tells me that she has had multiple loose stools. She complains of some abdominal discomfort, especially on the right side, but denied any nausea or vomiting. She is tolerating p.o. OBJECTIVE: Vitals: Temperature 97.8 degrees, pulse 87, breathing 16, blood pressure 131/84. Abdomen is distended but soft and I could not appreciate any mass or visceromegaly. Bowel sounds are audible and is tympanitic. The barium enema with Gastrografin had some results and the diagnosis was high impaction, otherwise no stricture seen. PLAN: Plan is to continue enema and also recommended her to lay on her sides rather than lying on her abdomen. She needs to have her electrolytes corrected, especially calcium. That will help her bowel movements also. I have explained my plan and findings. She understands. All her pertinent questions were answered. Her regular gastrologist is Dr. Sullivan. She was advised to follow up with him after discharge. She will need a colonoscopy. cc: Ian Acuna MD
[2018-11-18] MEDS: LEVAQUIN 750 MG/D5W 750 MG/150 ML IVPB IV SCH (15:56)
[2018-11-19] MEDS: DUONEB (A & A) INH SCH ×6 (03:11→23:06)
[2018-11-19] MEDS: MORPHINE IV PRN ×4 (04:13→21:01)
[2018-11-19 07:09] LABS: HEMATOCRIT 34.7 % (37.0-47.0); HEMOGLOBIN 11.6 g/dL (12.0-16.0); MCH 31.8 PG (27-31); MCHC 33.4 g/dL (33-37); MCV 95.1 FL (81-99); MPV 9.8 FL (7.4-10.4); RBC 3.65 XMIL (4.2-5.4); RDW 15.6 % (11.5-14.5); WBC 11.14 X1000 (4.8-10.8)
[2018-11-19 07:34] LABS: AGAP 7; ALBUMIN 2.8 g/dL (3.5-5.0); ALKALINE PHOSPHATASE 98 U/L (32-104); BUN 10 mg/dL (8-22); CALCIUM 8.2 mg/dL (8.8-10.2); CHLORIDE 101 mmol/L (98-107); COSMO 262; CREATININE 0.3 mg/dL (0.5-0.9); ESTIMATED GFR > 60; GLUCOSE 96 mg/dL (70-104); GOT 18 U/L (10-30); GPT 11 U/L (10-36); MAGNESIUM 1.8 mg/dL (1.5-2.7); POTASSIUM 4.2 mmol/L (3.5-5.1); SODIUM 131 mmol/L (136-145); TCO2 23 mmol/L (25-35); TOTAL BILIRUBIN 0.37 mg/dL (0.20-1.00); TOTAL PROTEIN 5.7 g/dL (6.3-8.3)
--- NOTE | 2018-11-19 08:22 | GENERAL SURGERY PROGRESS NOTE ---
DATE: 11/19/2018 SUBJECTIVE: Patient doing okay. She is feeling better. She did have bowel movements with the enemas. OBJECTIVE: Vital Signs: Patient is currently afebrile and her vital signs are stable. General: No acute distress. HEENT: Normocephalic, atraumatic. Pupils equal, round, reactive to light. Mucous membranes moist. Oropharynx benign. Neck: Supple. Trachea midline. Cardiovascular: Regular rate and rhythm. Lungs: Grossly clear. Abdomen: Less distended overall. No real tenderness at this time. No peritoneal signs. Extremities: Moves all extremities. Neurologic: Grossly intact. Skin: No signs of jaundice. Vascular: All extremities perfused. LABORATORY: Reviewed from yesterday. ASSESSMENT AND PLAN: A 68-year-old female with ileus versus fecal impaction versus stricture. 1. Multiple medical comorbidities currently being managed by the hospitalist service. 2. History of lung cancer, being followed by Dr. Charles. 3. Leukocytosis, at this time seems to be improving. 4. Ileus versus colonic stricture versus impaction. At this time, she had a barium enema which showed a fecal impaction. We will continue with the enemas. We will also give her clear liquids but have the nurses observe her while she is getting clear liquids and make sure she is not aspirating. We will also start her on some MiraLAX and see if we can hit from both sides. 5. Possible bronchopneumonia with possible aspiration. Again, we will have the nursing staff observe her while she is taking in p.o.. cc: Hermes Hernandez MD MTDD
[2018-11-19] MEDS: MIRALAX PO SCH (09:16)
[2018-11-19] MEDS: CLINIMIX E 4.25%-5% SOLUTION 1,000 ML IV SCH (13:58)
[2018-11-19] MEDS ORDERED: DULCOLAX PR ONE (16:09)
[2018-11-19] MEDS ORDERED: GOLYTELY PO ONE (16:13)
--- NOTE | 2018-11-19 17:00 | PROGRESS NOTE ---
DATE: 11/19/2018 SUBJECTIVE: Patient reports still not having any bowel movement. She reports using clear liquids but it makes her abdomen more distended. She is not feeling sick with clear liquids, but she would prefer not to take it because of this worsening abdominal distention. OBJECTIVE: Vital Signs: Temperature 98.8 degrees, heart rate 87, respiratory 16, blood pressure 138/91, O2 saturation 94% on room air skin. General examination: This is a 68-year-old, chronically ill-looking, female lying in bed, in no acute distress. HEENT: Head is normocephalic, atraumatic. Neck: No JVD noted. No carotid bruits. No lymphadenopathy. No thyromegaly. Cardiovascular: S1, S2 heard. No murmurs, gallops, or rubs. Regular rate and rhythm. Respiratory: Clear bilaterally to auscultation. No work of breathing or using accessory muscles. Abdomen: Definitely distended and tight. Nontender to palpation. No rebound or guarding noted. Bowel sounds decreased but present. Extremities: No clubbing, cyanosis, or edema. Peripheral pulses present in both legs. Neurological: Patient is alert and oriented x3. Moves 4 extremities. LABORATORY DATA: White cell count 11.14, hemoglobin 11.6, hematocrit 34.7, platelets 225,000. Sodium 131, albumin 2.8. ASSESSMENT AND PLAN: 1. Ileus versus fecal impaction. Patient had a barium enema that showed basically fecal impaction. I am not quite sure if this patient will need this impaction with colonoscopy or just with medication. Because this patient is still not having bowel movements, we will start GoLYTELY on this patient and will go from there. GI is following this patient as well. 2. Left lower lobe pneumonia. Her white cell count is getting much, much better. We will continue with Levaquin. The patient is not having any fever. Leukocytosis is getting better. We will continue with the same management. 3. Lung cancer. Dr. Charles is following this patient. She is still on active chemo. 4. Hypothyroidism. We will continue with Synthroid. 5. Hypocalcemia. Aware. We will continue to monitor. 6. Hyponatremia. Still present. Will continue to monitor BMP. cc: Gaston Ochoa MD
--- NOTE | 2018-11-19 18:11 | GASTROENTEROLOGY PROGRESS NOTE ---
DATE: 11/19/2018 This is ENRIQUE Barr dictating for Ian Acuna MD. SUBJECTIVE: The patient states she has still not had a good bowel movement. She has had some liquid stools. She has had multiple black enemas. She had a barium enema on 11/17/2018 that has showed sigmoid diverticulosis and fecal impaction, which was displaced during the examination; however, it was not evacuated. OBJECTIVE: Vital Signs: Temperature 99.3 degrees, pulse 80, respirations 16, blood pressure 148/90. General: The patient is awake and alert, no acute distress. Abdomen: Abdomen is distended, somewhat firm. LABORATORY DATA: Hematology: WBC 11.14, hemoglobin 11.6, hematocrit 34.7, platelets 225,000. Chemistry: Sodium 131, potassium 4.2, chloride 101, CO2 of 23, BUN 10, creatinine 0.3, glucose 96, calcium 8.2, magnesium 1.8, total bilirubin 0.37, AST 18, ALT 11, alkaline phosphatase 98. ASSESSMENT AND PLAN: 1. Fecal impaction. Barium enema has showed displacement of the impaction, but it was not evacuated. Continued laxatives, I believe GoLYTELY has been ordered, we will also have a Dulcolax suppository and hopefully she will start moving. Other plans to be made as needed. 2. Pneumonia, on antibiotics. 3. History of lung cancer. Following with Dr. Charles. 4. Hypocalcemia, hypothyroidism, hyponatremia. PLAN: Continue current laxatives that have been ordered and add a Dulcolax suppository. Further plans to be made according to her response. I have discussed this case with Dr. Acuna. Dictated by ENRIQUE Guillory for Ian Acuna MD cc: ENRIQUE Barr MD
--- NOTE | 2018-11-19 18:18 | Diag Imaging Result Doc PS360 ---
CHEST-PORTABLE - 11/19/2018 INDICATION: NGT placement COMPARISON: 11/16/2018 FINDINGS: There is nasogastric tube but this is doubled over in the distal esophagus, with the tip in the distal thoracic esophagus behind the heart. IMPRESSION: Nasogastric tube is doubled over distally at the distal most esophagus. This can probably be corrected by partial withdrawal of about 10 cm and advancement. This report was discussed with RT Jakub on 11/19/2018 at 6:15 PM and was readback. Electronically signed by Homer Helton 11/19/2018 6:16 PM
[2018-11-19] MEDS: LEVAQUIN 750 MG/D5W 750 MG/150 ML IVPB IV SCH (18:33)
[2018-11-19] MEDS: NS 1,000 ML IV SCH ×2 (18:37→21:06)
--- NOTE | 2018-11-19 19:05 | Diag Imaging Result Doc PS360 ---
CHEST-PORTABLE - 11/19/2018 6:47 PM INDICATION: NGT placement COMPARISON: 5:36 PM FINDINGS: The nasogastric tube appears to be in good position in the left upper quadrant. IMPRESSION: Nasogastric tube in good position in the left upper quadrant. Electronically signed by Homer Helton 11/19/2018 7:03 PM
[2018-11-20] MEDS: MORPHINE IV PRN ×3 (01:10→23:09)
[2018-11-20] MEDS: DUONEB (A & A) INH SCH ×6 (03:05→23:45)
[2018-11-20] MEDS: CLINIMIX E 4.25%-5% SOLUTION 1,000 ML IV SCH ×2 (05:10→17:56)
--- NOTE | 2018-11-20 06:25 | GENERAL SURGERY PROGRESS NOTE ---
DATE: 11/20/2018 SUBJECTIVE: The patient seems to get a little more distended after taking a little bit of p.o. She had an NG tube placed. OBJECTIVE: Vital Signs: The patient is currently afebrile. Her vital signs are stable. General: No acute distress. HEENT: Normocephalic, atraumatic. Pupils equal, round, and reactive to light. Mucous membranes moist. Oropharynx benign. Neck: Supple. Trachea midline. Cardiovascular: Regular rate and rhythm. Lungs: Grossly clear. Abdomen: Soft, but distended. No real tenderness. No peritoneal signs. Extremities: Moves all extremities. Neurologic: Grossly intact. Skin: No signs of jaundice. Vascular: All extremities perfused. LABORATORY: Laboratory reviewed from yesterday, white blood cell count 11, hematocrit 34, platelet count 225,000. Sodium is 131. Albumin is 2.8. ASSESSMENT AND PLAN: A 68-year-old female with ileus versus fecal impaction versus stricture. 1. Multiple medical comorbidities, currently being managed by the hospitalist service. 2. History of lung cancer, being followed by Dr. Charles. 3. Leukocytosis, seems to be improving. 4. Colonic stricture versus impaction versus ileus. At this time, we need to continue treatment. She did not tolerate clear liquids. She has an NG tube in place. I think she is probably ultimately going to require some degree of colonic decompression, but will defer to GI. 5. Possible bronchopneumonia, with possible aspiration. At this time, continue to monitor. cc: Hermes Hernandez MD
[2018-11-20 11:36] LABS: BASO# 0.02 X1000 (0.0-0.2); BASO% 0.2 % (0.0-0.8); HEMOGLOBIN 11.8 g/dL (12.0-16.0); IMM GRAN# 0.12 X1000 (0.0-0.04); LYMPH# 0.46 X1000 (1.2-3.4); LYMPH% 3.7 % (20.5-51.1); MCH 31.1 PG (27-31); MCHC 33.7 g/dL (33-37); MCV 92.3 FL (81-99); MONO# 0.44 X1000 (0.11-0.59); MONO% 3.5 % (1.7-9.3); MPV 9.4 FL (7.4-10.4); NEUT# 11.36 X1000 (1.4-6.5); NEUT% 91.6 % (42.2-75.2); PLT 230 X1000 (130-400); RBC 3.79 XMIL (4.2-5.4); RDW 15.3 % (11.5-14.5)
[2018-11-20 11:51] LABS: AGAP 5; BUN 11 mg/dL (8-22); CALCIUM 8.4 mg/dL (8.8-10.2); CHLORIDE 96 mmol/L (98-107); COSMO 265; CREATININE 0.3 mg/dL (0.5-0.9); ESTIMATED GFR > 60; GLUCOSE 115 mg/dL (70-104); POTASSIUM 4.1 mmol/L (3.5-5.1); SODIUM 132 mmol/L (136-145); TCO2 31 mmol/L (25-35)
[2018-11-20 11:57] LABS: BANDS 1 % (0-1); EOS 1 % (1-10); LYMPHS 3 % (21-51); MONO 3 % (1-9); SEGS 92 % (42-75)
[2018-11-20 11:58] LABS: ANISOCYTOSIS 1+
--- NOTE | 2018-11-20 12:33 | PROGRESS NOTE ---
DATE: 11/20/2018 SUBJECTIVE: Patient denies having any bowel movement yet. She was having a little bit of stool, but not really a big bowel movement. She is now on the NG tube with GoLYTELY running. OBJECTIVE: Vital Signs: Temperature 98.4 degrees, heart rate 71 respiratory rate 22, blood pressure 152/91, and O2 saturation 100% on room air. General Examination: This is a chronically ill appearing, malnourished 58-year-old female, lying in bed in no acute distress. Cardiovascular exam: S1, S2 heard. No murmurs, gallops, or rubs. Regular rate and rhythm. Respiratory exam: Clear bilaterally to auscultation. No work of breathing or using accessory muscles. Abdomen: Soft, nontender to palpation. Bowel sounds present. No organomegaly. Abdomen is a little bit less distended, but is still tight, mildly tender to palpation. Bowel sounds present, but distant. No rebound or guarding noted. Extremities: No clubbing, cyanosis, or edema. Peripheral pulses present in both legs. Neurological examination: Patient alert and oriented x3. Moves 4 extremities. LABORATORY DATA: White cell count 12.4, hemoglobin 11.8, hematocrit 35.0, platelets 230 with normal BMP, except sodium 132. ASSESSMENT/PLAN: 1. Ileus versus fecal impaction. The patient had enemas and also had GoLYTELY yesterday and today. We put a nasogastric tube in running GoLYTELY at 50 mL/hour, bit I am afraid and also I am okay with Dr. Hernandez thinking that this patient may end up needing decompression. We will leave it to Gastroenterology to decide that. We will continue with GoLYTELY by now and we will go from there. 2. Left lower lobe pneumonia. Patient is on Levaquin. White cell count is almost back to normal. We will continue with the same management. 3. Lung cancer. Oncology following this patient. 4. Hypothyroidism. We will continue with Synthroid. 5. Hypocalcemia. We will continue to replenish calcium. 6. Hyponatremia, still present. We will continue to monitor basic metabolic panel. 7. Disposition: Depending upon Gastroenterology plans. cc: Gaston Ochoa MD
[2018-11-20] MEDS: MIRALAX PO SCH (12:58)
[2018-11-20] MEDS ORDERED: DULCOLAX PR ONE (17:39)
[2018-11-20] MEDS: LEVAQUIN 750 MG/D5W 750 MG/150 ML IVPB IV SCH (17:56)
--- NOTE | 2018-11-20 18:00 | GASTROENTEROLOGY PROGRESS NOTE ---
DATE: 11/20/2018 SUBJECTIVE: Patient continues to be distended. She has had an NG-tube placed and is receiving GoLYTELY through the NG tube at 50 mL an hour. Patient states she has still not had a significant bowel movement. OBJECTIVE: Vital Signs: Temperature 99.1 degrees, pulse 82, respirations 22, blood pressure 127/83. Generally, patient is awake and alert. Abdomen is distended, firm, mildly tender, positive bowel sounds. LABORATORY: Hematology: WBC 12.40, hemoglobin 11.8, hematocrit 35.0, MCV 92.3, platelets 238,000. Chemistry: Sodium 132, potassium 4.1, chloride 96, CO2 of 31, BUN 11, creatinine 0.3, glucose 115, calcium 8.4, magnesium 1.8. ASSESSMENT AND PLAN: 1. Ileus versus fecal impaction. Patient has had multiple enemas. She had a barium enema. She has currently had an NGT placed and is receiving GoLYTELY at 50 mL an hour. We will give another Dulcolax suppository tonight. If she does not have significant results, we will plan to proceed with a flexible sigmoidoscopy with decompression when schedule permits. Further plans will be made according to her results. 2. Pneumonia. On antibiotics. 3. History of lung cancer. Oncology is following. 4. Hypothyroidism. Continue current medications. 5. Hypocalcemia. Patient has had replacement. We will continue to follow, and further plans will be made according to her progress. I have discussed this case with Dr. Acuna. We will decide tomorrow whether she needs a flexible sigmoidoscopy with decompression and schedule accordingly. Dictated by ENRIQUE Guillory for Ian Acuna MD cc: ENRIQUE Barr MD
[2018-11-20] MEDS: NS 1,000 ML IV SCH (18:17)
[2018-11-21] MEDS: DUONEB (A & A) INH SCH ×6 (03:25→23:15)
--- NOTE | 2018-11-21 06:15 | GENERAL SURGERY PROGRESS NOTE ---
DATE: 11/21/2018 SUBJECTIVE: Patient seems to be doing about the same. She has not really had much decrease in her distention, but she is feeling okay. OBJECTIVE: Vital Signs: Patient is currently afebrile. Her vital signs are stable. General: No acute distress. HEENT: Normocephalic, atraumatic. Pupils equal, round, reactive to light. Mucous membranes moist. Oropharynx benign. Neck: Supple. Trachea midline. Cardiovascular: Regular rate and rhythm. Lungs: Grossly clear. Abdomen: Soft but distended. No real tenderness. No peritoneal signs. Extremities: Moves all extremities. Neurologic: Grossly intact. Skin: No signs of jaundice. Vascular: All extremities perfused. LABORATORY: None this morning as of yet. ASSESSMENT AND PLAN: A 68-year-old female with ileus versus fecal impaction versus stricture. 1. Multiple medical comorbidities. Currently being managed by the hospitalist service. 2. History of lung cancer, being followed by Dr. Charles'ana. 3. Leukocytosis, which seems to be improving. 4. Ileus versus stricture versus impaction. At this time, we have been given her GoLYTELY and an NG tube. Still have not probably decreased the fecal impaction. Gastroenterology is contemplating a decompressive colonoscopy and disimpaction, which I think is probably going to be the best move for her. 5. Possible bronchopneumonia. At this time continue to monitor. cc: Hermes Hernandez MD
[2018-11-21 07:24] LABS: BASO# 0.01 X1000 (0.0-0.2); BASO% 0.1 % (0.0-0.8); EOS# 0.02 X1000 (0.0-0.7); EOS% 0.2 % (0.0-10.0); HEMATOCRIT 36.5 % (37.0-47.0); HEMOGLOBIN 12.3 g/dL (12.0-16.0); IMM GRAN# 0.06 X1000 (0.0-0.04); IMM GRAN% 0.7 % (0.0-0.5); LYMPH# 0.42 X1000 (1.2-3.4); LYMPH% 4.9 % (20.5-51.1); MCH 31.3 PG (27-31); MCHC 33.7 g/dL (33-37); MCV 92.9 FL (81-99); MONO# 0.33 X1000 (0.11-0.59); MONO% 3.8 % (1.7-9.3); MPV 9.4 FL (7.4-10.4); NEUT# 7.74 X1000 (1.4-6.5); NEUT% 90.3 % (42.2-75.2); PLT 247 X1000 (130-400); RBC 3.93 XMIL (4.2-5.4); RDW 15.8 % (11.5-14.5); WBC 8.58 X1000 (4.8-10.8)
[2018-11-21] MEDS: CLINIMIX E 4.25%-5% SOLUTION 1,000 ML IV SCH ×2 (07:40→18:52)
[2018-11-21 07:55] LABS: AGAP 6; BUN 13 mg/dL (8-22); CALCIUM 8.3 mg/dL (8.8-10.2); CHLORIDE 97 mmol/L (98-107); COSMO 268; CREATININE 0.3 mg/dL (0.5-0.9); ESTIMATED GFR > 60; GLUCOSE 93 mg/dL (70-104); POTASSIUM 4.1 mmol/L (3.5-5.1); SODIUM 134 mmol/L (136-145); TCO2 31 mmol/L (25-35)
[2018-11-21 08:05] LABS: BANDS 4 % (0-1); LYMPHS 10 % (21-51); MONO 6 % (1-9); SEGS 80 % (42-75)
--- NOTE | 2018-11-21 09:16 | PROGRESS NOTE ---
DATE: 11/21/2018 SUBJECTIVE: The patient reports not having bowel movement. She was leaking some home tiny amounts of loose stool. She has been provided GoLYTELY via NG tube. OBJECTIVE: Vital Signs: Temperature 97.9 degrees, heart rate 76, respiratory rate 16, blood pressure 159/90 O2 saturation 97% on room air. General Examination: This is a chronically ill- appearing, very malnourished 58-year-old female lying in bed, in no acute distress. Cardiovascular: S1, S2 heard. No murmurs, gallops, or rubs. Regular rate and rhythm. Respiratory: Clear bilaterally to auscultation. No work of breathing or using accessory muscles. Abdomen: Soft. Definitely continues to be distended same in compared with in comparing with the last 2 days. Mild tenderness to palpation all over. No signs of peritoneal irritation. Extremities: No clubbing, cyanosis, or edema. Peripheral pulses present in both legs. Neurological: The patient is alert and oriented x3. Moves 4 extremities. LABORATORY DATA: White cell count 8.58, hemoglobin 12.3, hematocrit 36.5, platelets 247,000 with normal BMP. ASSESSMENT AND PLAN: 1. Ileus versus fecal impaction. After we have tried GoLYTELY and we were not able to help her move her bowels Dr. Acuna from GI has decided to perform a decompressive sigmoidoscopy. We will follow his recommendations. The patient is aware of the plan and agreed to proceed. 2. Left lower lobe pneumonia. We will continue with Levaquin. White cell count back to normal. 3. Lung cancer. Oncology following this patient. 4. Hypothyroidism will continue with home doses of Synthroid. 5. Hypocalcemia. Calcium is mildly low today of 8.3, will replete calcium. 6. Hyponatremia almost resolved. We will continue to monitor BMP. 7. Disposition. I will see how this patient does after decompressive sigmoidoscopy, will continue to monitor. cc: Gaston Ochoa MD [facility]
[2018-11-21] MEDS ORDERED: DIPRIVAN 1% ONE ×2 (13:07→18:11)
[2018-11-21] MEDS ORDERED: XYLOCAINE-MPF 2% ONE (13:08)
[2018-11-21] MEDS ORDERED: FENTANYL ONE (13:09)
--- NOTE | 2018-11-21 14:26 | GASTROENTEROLOGY PROGRESS NOTE ---
DATE: 11/21/2018 SUBJECTIVE: The patient has not had any results from the GoLYTELY via NG tube. She continues to have abdominal distention and discomfort. OBJECTIVE: Vital Signs: Temperature 98.0 degrees, pulse 84, respirations 16, blood pressure 148/93. General: The patient is awake and alert. No acute distress. Abdomen: Distended, firm. Positive bowel sounds. Laboratory: Hematology: WBC 8.58, hemoglobin 12.3, hematocrit 36.5, MCV 92.9, platelets 247,000. Chemistry: Sodium 134, potassium 4.1, chloride 97, CO2 31, BUN 13, creatinine 0.3, glucose 93. ASSESSMENT AND PLAN: 1. Ileus versus fecal impaction. Patient has had multiple laxatives along with barium enema with no improvement in her symptoms. We will plan for a flexible sigmoidoscopy today with decompression. Further plans to be made according to findings. 2. Left lower lobe pneumonia. Continue on antibiotics. 3. Lung cancer. Oncology following. 4. I have discussed the procedure along with benefits and risks with the patient. She wishes to proceed. Further plans will be made as needed. I have discussed this case with Dr. Acuna. Dictated by ENRIQUE Guillory for Ian Acuna MD cc: ENRIQUE Barr MD
[2018-11-21 16:03] LABS: URINE SOURCE CLEAN CATCH
[2018-11-21 16:16] LABS: BILIRUBIN URINE NEGATIVE (NEGATIVE); BLOOD URINE NEGATIVE (NEGATIVE); COLOR STRAW; GLUCOSE URINE NEGATIVE (NEGATIVE); KETONE URINE NEGATIVE (NEGATIVE); LEUKOCYTES URINE NEGATIVE (NEGATIVE); NITRITE URINE NEGATIVE (NEGATIVE); PROTEIN URINE NEGATIVE (NEGATIVE); TURBIDITY URINE CLEAR (CLEAR); UROBILINOGEN URINE NORMAL (NORMAL)
[2018-11-21] MEDS: LEVAQUIN 750 MG/D5W 750 MG/150 ML IVPB IV SCH (16:16)
[2018-11-21] MEDS: MIRALAX PO SCH (16:17)
[2018-11-21 16:40] LABS: UR EPITHELIAL CELLS <10 /HPF (<10); URINE BACTERIA NEGATIVE /HPF; URINE RBC <10 /HPF (<10); URINE WBC <10 /HPF (<10)
[2018-11-21] MEDS ORDERED: ROBINUL ONE (17:25)
[2018-11-21] MEDS: NS 1,000 ML IV SCH (18:47)
--- NOTE | 2018-11-21 19:56 | OPERATIVE NOTE ---
PROCEDURE DATE: 11/21/2018 PROCEDURE: Colonoscopy and colon decompression. HISTORY: This is a 68-year-old white female admitted to the hospital with constipation and colon distention. She has not responded to treatment so far. She continues to have distended abdomen. Colonoscopy and decompression was scheduled today. DESCRIPTION OF PROCEDURE: Informed consent was obtained from the patient. Procedure, risks, benefits and alternatives were explained in layman's terms. She understood. All the pertinent questions were answered. The patient was brought to the endoscopy unit and was premedicated as per Anesthesia. After adequate sedation, while she was lying in left lateral position a digital rectal exam was performed, which was normal. The scope was then gently introduced into the rectum and advanced under direct vision. With the colonoscope I was only able to advance it to 20 cm from the anal verge. Further advancement was not possible because of the extreme angulation of the colon. At that time I switched the scope to a gastroscope. The gastroscope was able to advance all the way up to the ascending colon. The colon in the sigmoid colon was edematous and had multiple diverticula. I did not see any evidence of diverticulitis, though. In the ascending colon the mucosa was slightly hyperemic and there was some pitted inflammation noted. It appears that the mucosa was slightly inflamed. Otherwise the colon was very cavernous, both right and left, the right being more than the left side. Decompression was done. The colon was decompressed and then the scope was then removed. The patient tolerated the procedure well. No complications were noted. The patient was then transferred to the recovery area in a stable condition. IMPRESSION: 1. Mild colitis, most likely related to constipation. 2. Diverticulosis. 3. Otherwise cavernous and slightly distended colon, which was decompressed. RECOMMENDATIONS: I would resume all of her medications and hold off diet tonight. Tomorrow if everything goes fine, she can be started back on her full liquid diet and advance as tolerated to regular diet. In the meantime, continue laxatives. I have explained the findings and plan to the patient's sister. She understood. All the pertinent questions were answered. cc: Ian Acuna MD
[2018-11-22] MEDS: MORPHINE IV PRN ×4 (01:33→20:41)
[2018-11-22] MEDS: CLINIMIX E 4.25%-5% SOLUTION 1,000 ML IV SCH ×3 (01:46→17:15)
[2018-11-22] MEDS: DUONEB (A & A) INH SCH ×6 (03:05→23:30)
[2018-11-22 07:47] LABS: BASO# 0.03 X1000 (0.0-0.2); BASO% 0.3 % (0.0-0.8); EOS# 0.05 X1000 (0.0-0.7); EOS% 0.4 % (0.0-10.0); HEMATOCRIT 37.7 % (37.0-47.0); HEMOGLOBIN 12.7 g/dL (12.0-16.0); IMM GRAN# 0.05 X1000 (0.0-0.04); IMM GRAN% 0.4 % (0.0-0.5); LYMPH# 0.55 X1000 (1.2-3.4); LYMPH% 4.9 % (20.5-51.1); MCH 31.4 PG (27-31); MCHC 33.7 g/dL (33-37); MCV 93.1 FL (81-99); MONO% 3.6 % (1.7-9.3); MPV 9.1 FL (7.4-10.4); NEUT# 10.18 X1000 (1.4-6.5); NEUT% 90.4 % (42.2-75.2); PLT 269 X1000 (130-400); RBC 4.05 XMIL (4.2-5.4); RDW 15.9 % (11.5-14.5); WBC 11.26 X1000 (4.8-10.8)
--- NOTE | 2018-11-22 07:53 | GENERAL SURGERY PROGRESS NOTE ---
DATE: 11/22/2018 SUBJECTIVE: Patient doing okay. She did have a decompressed colonoscopy. Says she is feeling better afterwards. OBJECTIVE: Vital Signs: Patient is currently afebrile. Her vital signs are stable. General: No acute distress. HEENT: Normocephalic, atraumatic. Pupils equal, round, reactive to light. Mucous membranes moist. Oropharynx benign. Neck: Supple. Trachea midline. Cardiovascular: Regular rate and rhythm. Lungs: Grossly clear. Abdomen: Soft, less distended. No tenderness to palpation. Extremities: Moves all extremities. Neurologic: Grossly intact. Skin: No signs of jaundice. Vascular: All extremities perfused. LABORATORY: None this morning as of yet. ASSESSMENT AND PLAN: A 68-year-old female with ileus versus fecal impaction versus stricture. 1. Multiple medical comorbidities currently being managed by the Hospitalist service. 2. History of lung cancer, currently being followed by Dr. Charles. 3. Leukocytosis. At this point, seems to be improving and essentially normal yesterday. 4. Ileus versus stricture versus impaction. At this point, she underwent a decompressive colonoscopy, did not feel like they found any major pathology on the colonoscopy and she is doing better after good decompression. 5. Possible bronchopneumonia. At this time, we will continue to monitor. cc: Hermes Hernandez MD
[2018-11-22 08:00] LABS: AGAP 7; BUN 11 mg/dL (8-22); CALCIUM 8.8 mg/dL (8.8-10.2); CHLORIDE 98 mmol/L (98-107); COSMO 268; CREATININE 0.3 mg/dL (0.5-0.9); ESTIMATED GFR > 60; GLUCOSE 109 mg/dL (70-104); POTASSIUM 4.5 mmol/L (3.5-5.1); SODIUM 134 mmol/L (136-145); TCO2 29 mmol/L (25-35)
[2018-11-22 08:30] LABS: LYMPHS 6 % (21-51); MONO 4 % (1-9); SEGS 90 % (42-75)
[2018-11-22] MEDS: MIRALAX PO SCH ×2 (10:38→20:41)
[2018-11-22] MEDS: NS 1,000 ML IV SCH (14:01)
[2018-11-22] MEDS: LEVAQUIN 750 MG/D5W 750 MG/150 ML IVPB IV SCH (17:14)
--- NOTE | 2018-11-22 18:35 | HEMO/ONC CONSULTATION ---
DATE: 11/20/2018 ADMITTING PHYSICIAN: Alec Cisneros MD REQUESTING PHYSICIAN: Alec Cisneros MD We appreciate this consult. CHIEF COMPLAINT: Stage IIIA moderately differentiated saq-ggyww-zjuv lung cancer. HISTORY OF PRESENT ILLNESS: Ms. Cydney Coyle is a 68-year-old female well known to Dr. Charles with a history of stage IIIA moderately differentiated non-small cell lung cancer. Currently on carboplatin and Taxotere. First cycle was completed on 11/06/2018. The patient actually missed her second cycle on 11/20/2018, the day of consultation secondary to questionable ileus versus colonic stricture. The patient presented to [facility] with complaints of epigastric and periumbilical abdominal pain, and no bowel movement for greater than 4 days. The patient also reports that she has been unable to eat for 2 days prior to presentation, with significant nausea. The patient had not had any vomiting. White blood cell count was elevated to 34,450, likely secondary to Neulasta effect. Abdominal x-ray revealed colonic ileus versus distal colonic obstruction, questionably related to fecal impaction, as well as left lower lobe pneumonia. CT of the abdomen and pelvis was obtained, which revealed bronchopneumonia in the left lower lobe, questionably related to aspiration, with fecal impaction in the sigmoid colon and possibility of a stricture in the sigmoid colon as well. Remainder of colon was dilated. The patient was admitted for the same. PAST MEDICAL HISTORY: 1. Fsz-ajley-tkzj lung cancer. 2. COPD. 3. Hypothyroidism. PAST SURGICAL HISTORY: Hysterectomy. FAMILY HISTORY: Negative for any hematologic or oncologic problems. SOCIAL HISTORY: The patient does not use tobacco, alcohol or illicit drugs. MEDICATIONS: On admission: 1. Levothyroxine. 2. Nebivolol. 3. Dexamethasone. ALLERGIES: Penicillins, promethazine, hydrocodone and propoxyphene. REVIEW OF SYSTEMS: A 14-point review of systems was obtained and is negative except as mentioned in HPI. PHYSICAL EXAMINATION: Ms. Coyle is a pleasant 68-year-old female lying supine in bed, in no immediate distress. Vital signs: Temperature 98.4 degrees, blood pressure 152/91, heart rate 71, respirations 22, O2 saturation 100% on room air. HEENT: Normocephalic, atraumatic. Mucous membranes pink and moist. Sclerae are anicteric. Extraocular movements intact. Neck is supple. Lungs are clear to auscultation bilaterally. Chest expansion equal bilaterally. CV: S1, S2 is heard. No murmurs, rubs or gallops. Abdomen is distended and tender to palpation throughout. Bowel sounds are distant. Extremities without clubbing, cyanosis or edema. Dermatologic: No rashes, bruises or lesions. Neurologic: The patient is awake, alert and oriented x3. She has no focal deficit. LABORATORY DATA: Hemoglobin 11.6, hematocrit 34.7, white blood cell count 11.14, platelets 225,000. Sodium 131, potassium 4.2, chloride 101, CO2 is 23, BUN 10, creatinine 0.3 and glucose is 96. Magnesium 1.8 and calcium 8.2. DIAGNOSTIC DATA: Imaging studies as in HPI. ASSESSMENT AND PLAN: 1. Stage IIIA moderately differentiated ydx-wvgyg-iypi lung cancer, on carboplatin and Taxotere. First cycle was completed on 11/06/2018. Cycle 2 was due 11/20/2018. We will continue to follow and reschedule when appropriate. 2. Ileus versus colonic stricture versus impaction. Gastroenterology and Surgery are currently following. The patient does have an nasogastric tube placed to low suction. 3. Bronchial pneumonia, questionably secondary to aspiration. The patient is currently on Levaquin. 4. Severe weight loss. The patient is currently on Marinol. Weight remains stable at this time. We will continue to monitor. 5. Chemotherapy-induced anemia. Hemoglobin is currently stable. 6. Leukocytosis on admission, likely secondary to Neulasta effect. We will continue to monitor. 7. We will follow along with you and make further recommendations pending outcomes. The above reflects the history, exam, assessment and plan of Dr. Charles. Dictated by ENRIQUE Quinonez for Gino Charles MD cc: ENRIQUE Quinonez MD
--- NOTE | 2018-11-22 19:31 | PROGRESS NOTE ---
DATE: 11/22/2018 INTERVAL HISTORY: The patient underwent decompressive colonoscopy yesterday which she tolerated well. It had detected mild colitis related to constipation, diverticulosis, otherwise cavernous and slightly distended colon, which was decompressed. She has been tolerating full liquid diet well/ SUBJECTIVE: Denies chest pain or shortness of breath. Her cough is significantly getting better. Denies any nausea, vomiting, or abdominal pain. She had been passing gas, however, and she had a slight bowel movement early in the morning time. She has tolerated liquid diet well. PHYSICAL EXAMINATION: Current vitals detect temperature 98 degrees, pulse 79, respiratory rate 16, blood pressure 110/70, saturating 97% on room air. General: Not in any acute distress. HEENT: Oral cavity is moist. Lungs: Air entry bilaterally equal. No wheeze, rhonchi, or crackles. Cardiovascular: S1, S2 normal. No murmur, rub, or gallop. Abdomen: Soft. Gaseous distention with tympanic percussion. Nontender. Extremities: No lower extremity edema. Neurologic: She appears cachectic. She is alert, oriented x3. Laboratories are suggestive of mild leukocytosis, which has significantly improved since presentation. Her kidney function is essentially normal. ASSESSMENT AND PLAN: 1. Fecal impaction leading to large intestinal obstruction which did not respond to medical therapy, status post colonoscopy and decompression of colon on November 21, which she tolerated well. Continue full liquid diet and advance to softer diet tomorrow. Continue bowel regimen to avoid future constipation. 2. Left lower lobe pneumonia. Continue the patient on Levaquin. Her leukocytosis has essentially resolved. 3. Non small cell Lung cancer on chemotherapy: Oncology is following this patient. Her leucocytosis could be due to Neulasta. 4. Hypothyroidism. Continue home Synthroid. 5. Hypocalcemia, stable. 6. Hyponatremia, resolved. 7. Disposition: If the patient tolerates GI soft diet well and has had good bowel movements, plan will be to eventually discharge her home tomorrow. Plan of care discussed with her. All of her questions have been answered. cc: Aidan Sim MD [facility]
[2018-11-23] MEDS: DUONEB (A & A) INH SCH ×4 (03:00→15:06)
--- NOTE | 2018-11-23 08:16 | GENERAL SURGERY PROGRESS NOTE ---
DATE: 11/23/2018 SUBJECTIVE: Patient seems to be doing okay. She seems to be tolerating her diet at this point, still seems to be having bowel movements. OBJECTIVE: Vital Signs: Patient is currently afebrile. Her vital signs stable. General: No acute distress. HEENT: Normocephalic, atraumatic. Pupils equal, round, reactive to light. Mucous membranes moist. Oropharynx benign. Neck: Supple. Trachea midline. Cardiovascular: Regular rate and rhythm. Lungs: Grossly clear. Abdomen: Soft. No distention at this point. Nontender. Extremities: Moves all extremities. Neurologic: Grossly intact. Skin: No signs of jaundice. Vascular: All extremities perfused. LABORATORY DATA: Reviewed from yesterday. White blood cell count 11, hematocrit 37, platelet count 269,000. Remainder of labs reviewed. ASSESSMENT AND PLAN: A 68-year-old female with ileus versus fecal impaction versus stricture. 1. Multiple medical comorbidities currently being managed by the Hospitalist service. 2. History of lung cancer, currently being followed by Dr. Charles. 3. Leukocytosis. Leukocytosis at this point seems to be improving. 4. Ileus versus stricture versus impaction. At this point, she underwent decompressive colonoscopy. Everything seems to be going okay. There was not really any major pathology noted, so there might not be a stricture; it might be more of an ileus versus impaction. Regardless, I would like to see her tolerate a GI soft diet at least before prior to discharge. 5. Possible bronchopneumonia. At this time, we will continue to monitor. cc: Hermes Hernandez MD
[2018-11-23] MEDS: MORPHINE IV PRN (09:06)
[2018-11-23] MEDS: MIRALAX PO SCH ×2 (09:07→21:50)
--- NOTE | 2018-11-23 15:05 | GASTROENTEROLOGY PROGRESS NOTE ---
DATE: 11/23/2018 SUBJECTIVE: Patient had a colonoscopy and colon decompression on 11/21/2018. Findings showed mild colitis most likely related to constipation and diverticulosis, otherwise cavernous and slightly descending colon which was decompressed. Today patient states she feels better. She is still having some loose stools. So far, she seems to be tolerating her diet. She is eating small amounts. OBJECTIVE: Vital Signs: Temperature 98.8 degrees, pulse 83, respirations 16, blood pressure 118/75. General: Patient is awake, alert, in no acute distress. Abdomen: Softer, less distended, nontender. No abdominal distention actually noted at present time. LABORATORY: Hematology. WBC 11.26, hemoglobin 12.7, hematocrit 37.7, MCV 93.1, platelets 269,000. Chemistry. Sodium 134, potassium 4.5, chloride 98, CO2 29, BUN 11, creatinine 0.3, glucose 109. ASSESSMENT AND PLAN: 1. Ileus versus impaction. There was no evidence of stricture. Patient underwent colonoscopy with decompression. Her abdomen is now nondistended and soft. She is tolerating an advanced diet. 2. History of lung cancer. Follows with Dr. Charles. 3. GI will continue to follow and be available according to her progress. Further plans to be made as needed. I have discussed this case with Dr. Acuna. Dictated by ENRIQUE Guillory for Ian Acuna MD cc: ENRIQUE Barr MD
--- NOTE | 2018-11-23 15:53 | PROGRESS NOTE ---
DATE: 11/23/2018 INTERVAL HISTORY: No acute events overnight. The patient tolerated liquid diet well. She has had liquidy bowel movements in the morning time since breakfast. She has been eating softer food without any trouble. However, she has not had a bowel movement after eating softer food. She denies any nausea, vomiting, or abdominal pain, though. VITALS: Currently, temperature 98.8 degrees, pulse 83, respiratory rate 16, blood pressure 120/75, saturating 97% on room air. PHYSICAL EXAMINATION: General: Cachectic with severe protein energy malnutrition, not in any acute distress. Mouth: Oral cavity is moist. Lungs: Air entry bilaterally equal. No wheeze, rhonchi, crackles. Heart: S1, S2 normal. No murmur, rub, or gallop. Abdomen: Soft, nontender. Gaseous distention with tympany to percussion. It is scaphoid. Extremities: No lower extremity edema. Neurologic: She is alert and oriented x3. LABS: She does not have any CBC or BMP today. ASSESSMENT AND PLAN: 1. Fecal impaction leading to large intestinal obstruction versus ileus, which did not respond to medical therapy, and required colonoscopy and decompression of colon on November 21. Continue GI soft diet with stool softeners. 2. Left lower lobe pneumonia, improved on Levaquin. Continue on the current treatment for a total of 7 days. 3. Non-small cell lung cancer on chemotherapy. Oncology on board. On presentation, the leukocytosis she had could be related to Neulasta. She should follow up with Oncology as an outpatient. 4. Others: Continue Synthroid for hypothyroidism. Other issues, including hypocalcemia and hyponatremia, have essentially resolved and are stable. DISPOSITION: I will await for patient to have good bowel movement and soft food. If she continues to have that, my plan is to discharge her tomorrow. Plan of care discussed with her. All of her questions have been answered. cc: Aidan Sim MD
[2018-11-23] MEDS: LEVAQUIN 750 MG/D5W 750 MG/150 ML IVPB IV SCH (18:03)
[2018-11-23] MEDS ORDERED: MELATONIN PO ONE (21:30)
[2018-11-24] MEDS: MIRALAX PO SCH (09:47)
--- NOTE | 2018-11-24 16:10 | PROGRESS NOTE ---
DATE: 11/24/2018 Ms. Coyle has been followed by Dr. Hernandez because of an abdominal ileus. She has known non-small cell lung cancer. She is being treated by Dr. Charles. This morning her abdomen is soft. She has had a bowel movement and flatus. She is eating 50 to 75% of her meals and I feel that her ileus has resolved. She has no abdominal tenderness. If her abdomen is distended, it is only slightly so. She is now on a GI soft diet. cc: Ale Copeland MD
[2018-11-24 16:21] VITALS: BP 116/74
--- NOTE | 2018-11-24 22:10 | DISCHARGE SUMMARY ---
ADMISSION DATE: 11/16/2018 DISCHARGE DATE: 11/24/2018 DISCHARGE DIAGNOSES: 1. Fecal impaction leading to colonic obstruction. 2. Left lower lobe pneumonia. 3. Hyponatremia. OTHER DIAGNOSES: 1. History of non-small cell lung cancer on chemotherapy. 2. Leukocytosis, because of Neulasta use. 3. Hypothyroidism. 4. Hypertension. 5. Severe protein energy malnutrition leading to cachexia, related to cancer. DISCHARGE MEDICATIONS: Nebivolol 5 mg tablet daily. Dexamethasone 1 mg tablet orally. Levothyroxine 75 mcg p.o. daily. MiraLAX 17 g p.o. b.i.d. 30 packets have been prescribed to have 1 to 2 soft formed bowel movements a day. CONSULTATIONS: During hospitalization: General surgeon: Dr. Hernandez. Breaker Unit Assembler: Dr. Acuna. PROCEDURES: During hospitalization, the patient underwent colonoscopy and colon decompression on 11/22/2018, which had just suggested mild colitis related to constipation, diverticulosis. PHYSICAL EXAMINATION: Vitals: At the time of discharge, temperature 98.1, pulse 80, respiratory rate 18, blood pressure 106/77, saturating 94% on room air. General: Patient does have severe protein energy malnutrition. However, she is not in any acute distress. No pallor, cyanosis, clubbing, or icterus. Lungs: Air entry bilaterally equal. No wheeze, rhonchi, crackles. Cardiovascular: S1, S2 normal. No murmur, rub, or gallop. Abdomen: Soft, nontender. Extremities: No lower extremity edema. SIGNIFICANT LABS: During hospital discharge, WBC 11.2, hemoglobin 12.7, platelet 269. Sodium 134, BUN 11, creatinine 0.3, potassium 4.5, blood glucose is 262. Significant microbiology during hospital admission, blood culture did not have any growth. Imaging during hospital admission: Abdominal x-ray on admission had colonic ileus versus distal colonic obstruction likely due to fecal impaction. Chest, abdomen, pelvis CT on November 16 has a bronchopneumonia of the left lower lobe, which could be related to aspiration. Retained fluid and solid contents in the esophagus. Fecal impaction in the sigmoid colon with possibility of stricture in the sigmoid colon and dilatation of the remainder of the colon. Barium enema on November 17 had sigmoid diverticulosis. Fecal impaction. Chest x-ray on November 19 had suggested it was for the nasogastric tube. HOSPITAL COURSE SUMMARY: Ms. Coyle is a 68-year-old, lady, who came in with chief complaints of epigastric and periumbilical abdominal pain with no bowel movements for more than 4 days and decreased appetite for 2 days with nausea. She was getting treatment for lung cancer with last treatment about a week ago prior to presentation. In the emergency room, she was found to have a WBC count of 35,000, which was thought to be related to Neulasta use. Abdominal imaging had suggested possibly fecal impaction leading to colonic obstruction. She was admitted inside the hospital and was managed initially conservatively with enema and stool softeners. Also an NG tube was inserted, and she was started on GoLYTELY. However, despite that, she did not have a bowel movement and abdominal pain did not resolve, so eventually she underwent colonoscopy with decompression of colon and removal of fecal rectal material. After the colonoscopy, her hospital course was benign. She was initially started on liquid diet, which was later on advanced to GI soft diet. She, at the time of discharge, has been tolerating GI soft diet without any nausea, vomiting, abdominal pain, and has been having consistent liquid to semi-solid bowel movements for 2 days and is thought to be appropriate for discharge. The patient was given discharge instructions about following up with regular doctor, cancer doctor, and GI doctor as an outpatient and continue to take stool softeners to have 1 to 2 soft bowel movements a day. TIME SPENT: Less than 30 minutes were spent in discharging the patient. All of her questions have been answered. cc: Aidan Sim MD
== END 2018-11-24 17:45 | disposition home or self-care (01) | DRG 344 ==
LOC: ED 13:46 → EDIPHOLD 17:16 → SUATTDRO 17:16 → 3N 21:45
PROVIDERS: ATTEND Internal Medicine
CPT/HCPCS: 71010; 71045; 71250; 74022; 74176; 74270; 80048; 80053; 81001; 82150; 82330; 82948; 83690; 83735; 85025; 85027; 85610; 85730; 87040; 93005; 94640; 94761; 94799; 99285; A9270; J1956; J2270; J2405; J3010; J7030; Q9958; S0073; XXXXX